=== PATIENT | male | born 1930 | race Caucasian/White ===

== ENCOUNTER 2016-04-12 18:53 | Inpatient (IN) | payer MEDICARE, MEDICAID ==
[~2016-04-12] VITALS: Ht 185.4 cm; Wt 69.9 kg
[~2016-04-12 18:53] MED LIST: ADVAIR 100/501 DISK INH; ADVAIR 500/501 DISK INH; ALBUTEROL2.5 MG/3 M INH; ATROVENT 0.03%30 ML NASAL; AUGMENTIN 500-11 TA1 PO; AUGMENTIN 875-11 TAB PO; B-12 DOTS500 MCG; BAYER CHEWABLE81 MG PO; BENEFIBER1 PKT PO; BETAPACE 120 M120 MG PO; BETAPACE 80 MG80 MG PO; CLEOCIN HCL300 MG PO; COLACE100 MG PO; DOK250 MG PO; DULCOLAX10 MG/SUPP RC; FLAGYL500 MG PO; FLUTICASONE PRO16 GM NS; FUROSEMIDE20 MG PO; GENTAK5 ML; HYDROCODONE-APA1 TAB PO; IPRAT-ALBUT 0.5-3 ML UPD; K-TAB10 MEQ PO; LASIX20 MG PO; LEVAQUIN 5500 MG/100 PO; LEVAQUIN500 MG PO; LEVAQUIN750 MG PO; LEVSIN/ANASP0.125 MG PO; LINZESS145 MCG PO; LISINOPRIL10 MG PO; MEDROL DOSE PACK4 MG PO; MIRALAX17 GM PO; MUCINEX1200 MG/BO; NIFEREX-150 CAP1 CA3 PO; NORCO 10/325 TA1 TA1 OR; NORCO 10/325 TA1 TA1 PO; NORVASC2.5 MG PO; NYSTATIN ORAL SU5 ML PO; PERFOROMIS20 MCG/21 INH; PLAVIX75 MG PO; PREDNISONE10 MG PO; PREDNISONE20 MG PO; PRINIVIL20 MG PO; PROTONIX40 MG PO; PULMICORT0.5 MG/21 INH; SINGULAIR10 MG PO; SPIRIVA18 MCG INH; STERAPRED 5MG 125 MG PO; TESSALON PERLE100 MG PO; TOPROL XL50 MG PO; XOPENEX 0.0.63 MG/3 UPD; ZOCOR40 MG PO
[2016-04-12 19:51] LABS: BASOPHILS 0.3 % (0.0-2.0); EOSINOPHILS 1.1 % (0-7); HEMATOCRIT 32.3 % (42.0-54.0); HEMOGLOBIN 9.9 g/dL (13.5-17.5); LYMPHOCYTES 13.6 % (15-50); MCH 24.3 pg (26.0-34.0); MCHC 30.7 g/dL (31.0-37.0); MCV 79.2 fL (80.0-100.0); MEAN PLATELET VOLUME 10.8 fL (7.4-10.4); MONOCYTES 5.2 % (2-11); NEUTROPHILS 79.8 % (40-80); PLATELET COUNT 187 10x3/uL (130-400); RBC 4.08 10x6/uL (4.20-6.10); RDW 19.2 % (11.5-14.5); WBC 3.7 10x3/uL (4.8-10.8)
[2016-04-12 20:08] LABS: ALBUMIN 2.7 g/dL (3.4-5.0); ANION GAP 17.4 mmol/L (8-16); BILIRUBIN - TOTAL 0.47 mg/dL (0.2-1.3); CALCIUM 8.3 mg/dL (8.5-10.1); CARBON DIOXIDE 23.7 mmol/L (21.0-32.0); CREATININE - SERUM 1.2 mg/dL (0.6-1.3); POTASSIUM - SERUM 5.1 mmol/L (3.5-5.1); PROTEIN - SERUM 5.7 g/dL (6.4-8.2)
[2016-04-12 20:10] LABS: APPEARANCE CLEAR (CLEAR); BILIRUBIN NEGATIVE (NEGATIVE); COLOR YELLOW (YELLOW); GLUCOSE NEGATIVE (NEGATIVE); KETONE SMALL mg/dL (NEGATIVE); LEUKOCYTE ESTERASE NEGATIVE (NEGATIVE); NITRITE NEGATIVE (NEGATIVE); PROTEIN NEGATIVE (NEGATIVE); SPECIFIC GRAVITY 1.015 (1.005-1.020); UROBILINOGEN NORMAL (NORMAL)
[2016-04-13] VITALS (46 sets, daily range): BP systolic 76–113; BP diastolic 40–84; Ht 185.4 cm; Wt 69.9 kg
[2016-04-13] MEDS ORDERED: CLEOCIN HCL300 MG PO (03:03)
--- NOTE | 2016-04-13 05:14 | NUR ---
PT RESTING COMFORTABLY AT THIS TIME, NO NEEDS NOTED, WILL CON'T TO MONITOR
[2016-04-13 09:00] LABS: BASOPHILS 0.1 % (0.0-2.0); EOSINOPHILS 0.1 % (0-7); HEMATOCRIT 30.4 % (42.0-54.0); HEMOGLOBIN 9.4 g/dL (13.5-17.5); IMMATURE GRANULOCYTES 0.3 % (0-5); LYMPHOCYTES 8.5 % (15-50); MCH 24.4 pg (26.0-34.0); MCHC 30.9 g/dL (31.0-37.0); MEAN PLATELET VOLUME 8.9 fL (7.4-10.4); MONOCYTES 8.5 % (2-11); NEUTROPHILS 82.5 % (40-80); PLATELET COUNT 172 10x3/uL (130-400); RBC 3.85 10x6/uL (4.20-6.10); RDW 19.3 % (11.5-14.5)
[2016-04-13 09:08] LABS: ANION GAP 12.5 mmol/L (8-16); CALCIUM 8.3 mg/dL (8.5-10.1); CARBON DIOXIDE 25.7 mmol/L (21.0-32.0); CREATININE - SERUM 1.1 mg/dL (0.6-1.3)
[2016-04-13 09:15] LABS: POTASSIUM - SERUM 4.2 mmol/L (3.5-5.1)
--- NOTE | 2016-04-13 10:00 | NUR ---
DOPAMINE TITRATED OFF.
--- NOTE | 2016-04-13 10:17 | NUR ---
Is the patient Alert and Oriented? Yes 0 * How many steps to enter\exit or inside your home? RAMP 0 * PCP DR. LANDAVERDE 0 * Pharmacy [facility] 0 * Preadmission Environment Home with Family 0 * ADLs Independent 0 * Equipment Bedside Commode Cane Nebulizer Oxygen Rolling Walker Wheelchair 0 * Other Equipment PATIENT STATES HIS O2 CONCENTRATOR AND PORTABLE AND NEBULIZER IS PROVIDED BY [employer] 0 * List name and contact numbers for known caregivers / representatives who currently or will assist patient after discharge: GRANDDAUGHTER: DEJA TAMEZ [phone] 0 * Community resources currently utilized Home Health 0 * Please name any agencies selected above. PATIENT CURRENT WITH [employer] AND HE ALSO HAS [facility] CALLS 0 * Additional services required to return to the preadmission environment? No 0 * Can the patient safely return to the preadmission environment? Yes 0 * Has this patient been hospitalized within the prior 30 days at any hospital? Yes 0 PATIENT IS AWAKE AND ALERT. HE STATES HE IS INDEPENDENT AND HIS GRANDDAUGHTER, DEJA TAMEZ, LIVES WITH HIM AND ASSISTS HIM NEEDED. SHE OR HER BOYFRIEND WILL BE AVAILABLE TO DRIVE HIM HOME AT DISCHARGE. PATIENT'S PCP IS DR. LANDAVERDE. HE GETS HIS MEDS FROM [facility] AT [facility]. PATIENT IS CURRENT WITH [facility]. HE STATES HE ALSO HAS SERVICES FROM [facility] CALLS. PATIENT STATES HE HAS O2 CONCENTRATOR AND PORTABLE PROVIDED BY [employer]. HE HAS A WALKER, CANE, W/C, AND BSC. HE STATES HE DOES NOT USE ANY OF THE EQUIPMENT IT WAS HIS 'S IN THE PAST. PATIENT STATES HE HAS RAMPS TO ENTER HIS HOME. NO DISCHARGE NEEDS IDENTIFIED AT THIS TIME.
--- NOTE | 2016-04-13 10:55 | NUR ---
BP REMAINS ABOVE PARAMETERS FOR DOPAMINE DRIP.
--- NOTE | 2016-04-13 14:26 | NUR ---
R.T. AT BEDSIDE NO CURRENT NEEDS.
[2016-04-13 14:31] LABS: CKMB 0.3 U/L (0.0-3.6); CREATINE KINASE 30 UL (21-232)
[2016-04-13 14:37] LABS: TROPONIN-I < 0.017 ng/mL (0.000-0.060)
[2016-04-13 18:59] LABS: CKMB 0.3 U/L (0.0-3.6); CREATINE KINASE 32 UL (21-232)
[2016-04-13 19:00] LABS: TROPONIN-I < 0.017 ng/mL (0.000-0.060)
--- NOTE | 2016-04-13 19:30 | NUR ---
PT AOX4, DENIES PAIN AT THIS TIME. UNLABORED RESPIRATIONS, SPO2 97 ON 4L NC. LUNG SOUNDS DIMINISHED. PERIPHERAL PULSES PRESENT. BOWEL SOUNDS ACTIVE IN ALL QUADRANTS. PT REPOSITIONS SELF INDEPENDENTLY. DENIES NEEDS AT THIS TIME. CALL LIGHT AND BEDSIDE TABLE WITHIN PT REACH. CPOC.
--- NOTE | 2016-04-13 21:00 | NUR ---
NO VISITORS AT THIS TIME. PT RESTING QUIETLY. VSS.
--- NOTE | 2016-04-13 23:00 | NUR ---
FRESH WATER TO BEDSIDE. VSS, PT DENIES PAIN AT THIS TIME. REPOSITIONED FOR COMFORT. DENIES NEEDS. CALL LIGHT AND BEDSIDE TABLE WITHIN PT REACH. CPOC.
[2016-04-14] VITALS (15 sets, daily range): BP systolic 96–123; BP diastolic 57–80
[2016-04-14 02:34] LABS: CKMB 0.3 U/L (0.0-3.6); CREATINE KINASE 28 UL (21-232)
[2016-04-14 02:40] LABS: TROPONIN-I < 0.017 ng/mL (0.000-0.060)
--- NOTE | 2016-04-14 04:00 | NUR ---
LINEN CHANGE AND PARTIAL BATH. VSS, NO C/O PAIN AT THIS TIME. RESTING COMFORTABLY. CALL LIGHT AND BEDSIDE TABLE WITHIN PT REACH. CPOC.
[2016-04-14 05:59] LABS: BASOPHILS 0 % (0.0-2.0); EOSINOPHILS 0 % (0-7); HEMATOCRIT 30.6 % (42.0-54.0); HEMOGLOBIN 9.5 g/dL (13.5-17.5); IMMATURE GRANULOCYTES 0.3 % (0-5); LYMPHOCYTES 4.2 % (15-50); MCH 24.2 pg (26.0-34.0); MCV 78.1 fL (80.0-100.0); MEAN PLATELET VOLUME 10.4 fL (7.4-10.4); MONOCYTES 2.6 % (2-11); NEUTROPHILS 92.9 % (40-80); PLATELET COUNT 151 10x3/uL (130-400); RBC 3.92 10x6/uL (4.20-6.10); RDW 19.6 % (11.5-14.5); WBC 5.8 10x3/uL (4.8-10.8)
[2016-04-14 06:33] LABS: ALBUMIN 2.3 g/dL (3.4-5.0); ALKALINE PHOSPHATASE 55 U/L (46-116); AMYLASE - SERUM 11 U/L (25-115); CALC OSMOLALITY 271 mosm/kg (275-300); CALCIUM 8.4 mg/dL (8.5-10.1); CARBON DIOXIDE 24.8 mmol/L (21.0-32.0); CHLORIDE - SERUM 100 mmol/L (98-107); GLUCOSE 163 mg/dL (74-106); MAGNESIUM - SERUM 1.6 mg/dL (1.8-2.4); PHOSPHOROUS 2.9 mg/dL (2.5-4.9); POTASSIUM - SERUM 4.2 mmol/L (3.5-5.1); PRO BNP 5331 pg/mL (0-450); PROTEIN - SERUM 5.9 g/dL (6.4-8.2); SODIUM 133 mmol/L (136-145); THYROID STIMULATING HORMONE 2.11 uIU/mL (0.36-3.74); UREA NITROGEN 17 mg/dL (7-18); eGFR NON AFRICAN AMERICAN 76 mL/min (90-120)
[2016-04-14 06:35] LABS: ALT (SGPT) 20 U/L (10-68); LIPASE 42 U/L (73-393)
--- NOTE | 2016-04-14 07:40 | NUR ---
SITTING UP ON SIDE OF BED FOR BREAKFAST. REFUSES MILK STATING LACTOSE INTOLERANT.
--- NOTE | 2016-04-14 10:00 | NUR ---
WATCHING TV. NO NEEDS. C/L IN REACH.
--- NOTE | 2016-04-14 14:31 | NUR ---
REPORT CALLED TO RYAN BERGERON. WILL TRANSFER PT TO ROOM 2203.
--- NOTE | 2016-04-14 15:28 | NUR ---
GRANDDAUGHTER DEJA NOTIFIED OF TRANSFER ROOM NUMBER. PT TRANSFERED TO 2203 VIA WHEELCHAIR.
--- NOTE | 2016-04-14 15:40 | NUR ---
PATIENT TRANSFERRED TO ROOM AT THIS TIME FROM ICU. NO COMPLAINTS OR SIGNS OF DISTRESS. SL X 2 INTACT. SITTING UP IN BED WITH CALL LIGHT WITHIN REACH.
--- NOTE | 2016-04-14 18:00 | NUR ---
PATIENT SITTING UP ON THE SIDE OF BED AT THIS TIME EATING. NO COMPLAINTS. IV INTACT. CALL LIGHT WITHIN REACH.
[2016-04-15 04:00] VITALS: BP 122/73
[2016-04-15 05:52] LABS: BASOPHILS 0 % (0.0-2.0); EOSINOPHILS 0 % (0-7); HEMATOCRIT 29.1 % (42.0-54.0); HEMOGLOBIN 9.2 g/dL (13.5-17.5); IMMATURE GRANULOCYTES 0.1 % (0-5); LYMPHOCYTES 5.3 % (15-50); MCH 24.3 pg (26.0-34.0); MCHC 31.6 g/dL (31.0-37.0); MONOCYTES 3.6 % (2-11); RBC 3.78 10x6/uL (4.20-6.10); RDW 19.1 % (11.5-14.5)
[2016-04-15 05:53] LABS: PLATELET COUNT 218 10x3/uL (130-400); WBC 7.5 10x3/uL (4.8-10.8)
[2016-04-15 06:15] LABS: ANION GAP 12.7 mmol/L (8-16); CALCIUM 8.8 mg/dL (8.5-10.1); CARBON DIOXIDE 25.5 mmol/L (21.0-32.0); CREATININE - SERUM 1.2 mg/dL (0.6-1.3); POTASSIUM - SERUM 4.2 mmol/L (3.5-5.1)
--- NOTE | 2016-04-15 07:00 | NUR ---
REPORT RECIEVED ASSUMED CARE. PATIENT IN BED WITH IV INTACT. NO COMPLAINTS OR SIGNS OF DISTRESS. CALL LIGHT WITHIN REACH.
[2016-04-15 09:04] VITALS: BP 140/92
[2016-04-15 09:47] LABS: % SATURATION 11 % (15-55); IRON 31 ug/dl (35-150); TOTAL IRON BIND CAPACITY 268 ug/dl (260-445); UNSAT IRON BIND CAPACITY 237 ug/dl (150-375)
[2016-04-15 13:01] VITALS: BP 136/79
--- NOTE | 2016-04-15 15:54 | HP ---
PATIENT: RAVEN SNIDER MEDICAL RECORD: [id number] ACCOUNT: [id number] LOCATION:D.MS [id number] : 32 ADMISSION DATE: 04/12/16 HISTORY AND PHYSICAL EXAMINATION HISTORY OF PRESENT ILLNESS: This 85-year-old male presented to the Emergency Room upon day of admission with complaint of nausea, vomiting and not feeling well. The patient had a temperature of 102 degrees, received updraft treatments by EMS and nausea medication, was brought in for further evaluation. Workup was obtained. The patient was having chills and congestion, was found to be tachycardic, unlabored respirations, but tachypneic and was admitted to the hospital. The patient is presently in the ICU and was notified of the patient this morning. The patient is resting comfortably at the present time, but complains of abdominal pain and will have further workup from the ICU. PAST MEDICAL HISTORY: Significant for CVA, coronary artery disease, [place], peripheral vascular disease, pneumonia, COPD, and hypoxia. 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 MEDICATIONS: Include lisinopril. SOCIAL HISTORY: The patient does not smoke at the present time. No alcohol use. REVIEW OF SYSTEMS: As above. PHYSICAL EXAMINATION: VITAL SIGNS: As below. GENERAL: He is an ill-appearing, well-developed, well-nourished 85-year-old white male that is resting in ICU. HEENT: Pupils are equal, round, and reactive to light. Extraocular movements are intact. Oral cavity and oropharynx otherwise clear. NECK: No cervical or pharyngeal adenopathy. No nuchal rigidity. LUNGS: Coarse breath sounds heard in the bases. HEART: Tachycardic with a I/ systolic ejection murmur. ABDOMEN: Soft and nontender. Positive bowel sounds. No hepatosplenomegaly, no masses. EXTREMITIES: Missing fingers as described above. MEDICATIONS: The patient also is on Colace, sotalol, simvastatin, clindamycin, lisinopril, Lasix, and Singulair. ALLERGIES: HE IS ALLERGIC TO LIDOCAINE AND NOVOCAIN. ASSESSMENT: 1. Sepsis. 2. Pneumonia. 3. Fever. 4. Tachycardia. 5. Arrhythmia. 6. Abdominal pain. PLAN: The patient will be admitted to the ICU. Pulmonary consultation with HISTORY AND PHYSICAL [id number] RAVEN SNIDER. Check laboratory appropriately. Antibiotics and updraft treatments and IV fluids. TRANSINT:[id number] Voice Confirmation ID: [id number] DOCUMENT ID: [id number] LAQUITA PEREZ MD at 1554 CC: [id number] DICTATION DATE: 04/13/16 1224 UPHOLSTERY MECHANIC: 04/13/16 1246 ADM IN [place] [id number] [place] [id number]
--- NOTE | 2016-04-15 18:02 | NUR ---
PATIENT IN BED WITH IV INTACT. SITTING UP WITH NO COMPLAINTS. IV INTACT. CALL LIGHT WITHIN REACH. REFUSES BSCDS.
[2016-04-15 18:10] VITALS: BP 115/70
--- NOTE | 2016-04-15 20:02 | NUR ---
PATIENT RESTING IN BED IN HIGH FOWLERS POSITION. NO SIGNS OF DISTRESS NOTED AT THIS TIME. RESPIRATIONS EVEN AND UNLABORED. DENIES ANY NEEDS AT THIS TIME. BED LOW. CALL LIGHT IN REACH.
[2016-04-15 21:00] VITALS: BP 131/84
[2016-04-16 02:00] VITALS: BP 122/87
--- NOTE | 2016-04-16 02:30 | NUR ---
PT IN BED WITH NO NEEDS. LEFT WRIST PATENT AND SALINE LOC. PT REFUSING SCD'S. SIDE RAILS ARE UP X 2. BED IS LOW. CALL LIGHT IS IN REACH.
[2016-04-16 05:02] LABS: BASOPHILS 0 % (0.0-2.0); EOSINOPHILS 0 % (0-7); HEMATOCRIT 29.9 % (42.0-54.0); HEMOGLOBIN 9.8 g/dL (13.5-17.5); IMMATURE GRANULOCYTES 0.4 % (0-5); LYMPHOCYTES 5.3 % (15-50); MCH 25.2 pg (26.0-34.0); MCHC 32.8 g/dL (31.0-37.0); MCV 76.9 fL (80.0-100.0); MEAN PLATELET VOLUME 10.4 fL (7.4-10.4); MONOCYTES 3.1 % (2-11); NEUTROPHILS 91.2 % (40-80); PLATELET COUNT 186 10x3/uL (130-400); RBC 3.89 10x6/uL (4.20-6.10); RDW 19.5 % (11.5-14.5); WBC 7.2 10x3/uL (4.8-10.8)
[2016-04-16 05:24] LABS: ANION GAP 13.2 mmol/L (8-16); CALCIUM 8.8 mg/dL (8.5-10.1); CARBON DIOXIDE 25.1 mmol/L (21.0-32.0); CREATININE - SERUM 1.1 mg/dL (0.6-1.3); POTASSIUM - SERUM 4.3 mmol/L (3.5-5.1)
[2016-04-16 06:00] VITALS: BP 137/79
[2016-04-16 08:30] VITALS: BP 138/86
--- NOTE | 2016-04-16 12:01 | NUR ---
NUTRITION MONITORING & EVAL CHART REVIEWED. PT TOLERATING REG DIET. 100% INTAKE RECENT MEALS. ENSURE WITH MEALS. RD FOLLOWING
[2016-04-16 12:14] VITALS: BP 116/78
[2016-04-16 16:54] VITALS: BP 140/90
[2016-04-16 21:00] VITALS: BP 140/79
[2016-04-17 00:21] VITALS: BP 142/88
--- NOTE | 2016-04-17 02:09 | NUR ---
RESTING WITH EYES CLOSED, RESP WITH EASE, NO ACUTE DISTRESS NOTED, CL IN REACH
[2016-04-17 05:00] VITALS: BP 132/82
[2016-04-17 05:26] LABS: BASOPHILS 0.1 % (0.0-2.0); EOSINOPHILS 0 % (0-7); HEMATOCRIT 32.4 % (42.0-54.0); HEMOGLOBIN 10.1 g/dL (13.5-17.5); IMMATURE GRANULOCYTES 1.7 % (0-5); LYMPHOCYTES 6.8 % (15-50); MCH 24.2 pg (26.0-34.0); MCHC 31.2 g/dL (31.0-37.0); MCV 77.7 fL (80.0-100.0); MEAN PLATELET VOLUME 9.8 fL (7.4-10.4); MONOCYTES 6.2 % (2-11); NEUTROPHILS 85.2 % (40-80); RBC 4.17 10x6/uL (4.20-6.10); RDW 19.5 % (11.5-14.5); WBC 7.2 10x3/uL (4.8-10.8)
[2016-04-17 05:35] LABS: PLATELET COUNT 279 10x3/uL (130-400)
[2016-04-17 05:53] LABS: ANION GAP 12.7 mmol/L (8-16); CALCIUM 8.9 mg/dL (8.5-10.1); CARBON DIOXIDE 28.1 mmol/L (21.0-32.0); CREATININE - SERUM 1.3 mg/dL (0.6-1.3); POTASSIUM - SERUM 4.8 mmol/L (3.5-5.1)
--- NOTE | 2016-04-17 07:10 | NUR ---
PATIENT RECEIVED ALERT IN HIGH BRISCOE POSITION WATCHING TV. NO SIGNS OF DISTRESS NOTED. DENIES NEEDS. SIDE RAILS UP X2. BED IN LOW POSITION. CALL LIGHT IN REACH.
[2016-04-17 07:53] VITALS: BP 164/106
[2016-04-17 09:12] LABS: TRANSFERRIN 211 mg/dL (200-370)
[2016-04-17] MEDS ORDERED: PULMICORT0.5 MG/21 UPD (10:04)
[2016-04-17] MEDS ORDERED: TESSALON PERLE100 MG PO (10:04)
[2016-04-17] MEDS ORDERED: MUCINEX DM ER1 EAC1 PO (10:05)
[2016-04-17] MEDS ORDERED: LEVAQUIN750 MG PO (10:06)
[2016-04-17] MEDS ORDERED: PREDNISONE10 MG PO (10:07)
[2016-04-17] MEDS ORDERED: ZITHROMAX250 MG PO (10:09)
--- NOTE | 2016-04-17 12:11 | NUR ---
WOUND CARE CONSULT: NOTED OLD BRUISES ON BILATERAL ARMS. 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 NO CHRONIC WOUNDS.
[2016-04-17 12:18] VITALS: BP 153/97
--- NOTE | 2016-04-17 12:32 | NUR ---
IV D/C WITH CATH TIP INTACT. SITE COVERED WITH GAUZE AND BANDAID.
--- NOTE | 2016-04-17 12:52 | NUR ---
CM REASSESSMENT NOTE: PATIENT IS DISCHARGING HOME TODAY WITH FAMILY. PATIENT IS CURRENT WITH [facility] (NOTIFIED) AND HOUSE CALLS. PATIENT HAS ALL EQUIPMENT NEEDED AT HOME. FAMILY BRINGING PORTABLE O2 TO GO HOME.
--- NOTE | 2016-04-17 12:55 | NUR ---
D/C TEACHING PROVIDED TO PATIENT AND FAMILY MEMBER. STATES UNDERSTANDING.
--- NOTE | 2016-04-17 13:00 | NUR ---
PATIENT D/C HOME WITH FAMILY VIA WHEELCHAIR.
[2016-04-18 20:08] LABS: SPE - A/G RATIO 0.9 (0.7-1.7); SPE - ALBUMIN 2.7 g/dL (2.9-4.4); SPE - ALPHA-1 GLOBULIN 0.5 g/dL (0.0-0.4); SPE - ALPHA-2 GLOBULIN 1.1 g/dL (0.4-1.0); SPE - BETA GLOBULIN 0.9 g/dL (0.7-1.3); SPE - GAMMA GLOBULIN 0.6 g/dL (0.4-1.8); SPE - M-SPIKE Not Observed g/dL (Not Observed); SPE - TOTAL PROTEIN 5.8 g/dL (6.0-8.5)
--- NOTE | 2016-04-25 09:13 | CN ---
PATIENT NAME:RAVEN QUIGLEY MEDICAL RECORD: [id number] : 32 LOCATION:D.MS [facility] ADMIT DATE: 04/12/16 ACCOUNT: [id number] CONSULTING PHYSICIAN: SMILEY CASTELLANO MD REFERRING PHYSICIAN: EMMANUELLE RAINES DO DATE OF CONSULTATION: 04/13/2016 CONSULT REQUESTING PHYSICIAN: Mariano Lilly MD REASON FOR CONSULTATION: Pneumonia and shortness of breath. HISTORY OF PRESENT ILLNESS: Mr. Quigley is an 85-year-old gentleman, very well known to me. According to the patient, he is doing fairly. He has some nausea, was seen at Dr. Landaverde's office yesterday. Then, last night he has a fever and chill and the patient came into the ER and on evaluation, he was found to have pneumonia on the right side. He has also vomited this morning. There is no associated diarrhea. He is coughing with white yellow colored sputum production. He also has fever and chill. He has a temperature of 102. REVIEW OF SYSTEMS: CONSTITUTIONAL: He has a fever and chill. HEENT: Sinus congestion. RESPIRATORY: As in history of present illness. CARDIOVASCULAR: Negative. GASTROINTESTINAL: Nausea and vomiting. GENITOURINARY: Negative. Other review of the systems are negative. PAST MEDICAL HISTORY: 1. COPD of severe degree, home oxygen dependent. 2. Chronic respiratory failure. 3. Severe gastroesophageal reflux disease. 4. Severe pulmonary hypertension. 5. Recurrent pneumonia. 6. Coronary artery disease. 7. Peripheral vascular disease. 8. History of thrombocytosis. 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 10. History of pancreatitis. PAST SURGICAL HISTORY: 1. Cholecystectomy. 2. He has amputation with third, fourth and fifth finger. 3. Bilateral carotid endarterectomy. ALLERGIES: HE IS ALLERGIC TO LIDOCAINE, PROCAINE AND NARCAN. PRESENT MEDICATIONS: On Orthogem was reviewed. PERSONAL AND SOCIAL HISTORY: The patient is an ex-smoker. He is a nondrinker. He lives alone. FAMILY HISTORY: Noncontributory. PHYSICAL EXAMINATION: CONSULT REPORT [id number] RAVEN QUIGLEY GENERAL: Now, the patient is lying comfortably in bed. He is not in acute distress. VITAL SIGNS: The blood pressure is 82-94/50, pulse is 94, respirations 16, temperature 99.3 and SPO2 is 97% on 4 liters nasal cannula. HEENT: Conjunctivae are pink. Sclerae nonicteric. NECK: Supple, no JVD. CHEST: There is prolonged expiration with wheezing, there are crackles on the right side. HEART: Rate and rhythm regular, normal sound, no murmur. ABDOMEN: Soft, bowel sounds present. No hepatosplenomegaly. RECTAL: Deferred. EXTREMITIES: No cyanosis, no clubbing, no pedal edema. SKIN: Warm, normal turgor. CENTRAL NERVOUS SYSTEM: The patient is awake and alert. There are no obvious cranial nerve abnormality. The gait was not tested. LABORATORY DATA: CBC: WBC is 7, hemoglobin 9.4, hematocrit 30.4 and the platelet count is 172. Chemistry: Sodium 137, potassium is 4.2, BUN is 17, creatinine 1.1 and bicarbonate is 25.7. Lactic acid level is 1.7 and magnesium 1.4. IMPRESSION: 1. Acute exacerbation of chronic obstructive pulmonary disease. 2. Pneumonia, right lower lobe consistent with community-acquired, possible aspiration with the patient's severe gastroesophageal reflux disease and recent nausea and vomiting. 3. Chronic hypoxic respiratory failure. 4. Severe gastroesophageal reflux disease. 5. 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 6. Severe pulmonary hypertension at 73 mmHg. RECOMMENDATION: Continue Zosyn. I will add Levaquin. Start methylprednisolone IV. Continue albuterol/ipratropium nebulizer. Start on Brovana and budesonide nebulizer. Continue Singulair. Follow up labs and chest radiograph in the morning. We will recommend GI consult, Dr. Lilly, once again thanks for involving me in the care of Mr. Quigley. TRANSINT:[id number] Voice Confirmation ID: [id number] DOCUMENT ID: [id number] SMILEY CASTELLANO MD at 0913 CC: TIMOTEO LANDAVERDE MD [id number] DICTATION DATE: 04/13/16 1435 MUSCULOSKELETAL PHYSICIAN: 04/13/16 1810 DIS IN 04/17/16 [facility] [address] [place] [address]
== END 2016-04-17 13:04 | disposition home health service (06) | DRG 871 ==
LOC: D.ER 18:53 → D.MS 21:48 → D.ER 21:48 → D.ICU 21:48 → D.MS 04-14 15:33
PROVIDERS: Emergency Medicine; Family Medicine; Legal Medicine; ADMIT Family Medicine
DX: A41.9 Sepsis, unspecified organism (principal); J15.6 Pneumonia due to other Gram-negative bacteria; J69.0 Pneumonitis due to inhalation of food and vomit; J44.1 Chronic obstructive pulmonary disease with (acute) exacerbation; J44.0 Chronic obstructive pulmonary disease with (acute) lower respiratory infection; J96.11 Chronic respiratory failure with hypoxia; I50.32 Chronic diastolic (congestive) heart failure; D80.1 Nonfamilial hypogammaglobulinemia; I25.10 Atherosclerotic heart disease of native coronary artery without angina pectoris; I11.0 Hypertensive heart disease with heart failure; I27.2 Other secondary pulmonary hypertension; I73.9 Peripheral vascular disease, unspecified; K21.9 Gastro-esophageal reflux disease without esophagitis; Z86.73 Personal history of transient ischemic attack (TIA), and cerebral infarction without residual deficits; I25.2 Old myocardial infarction; Z99.81 Dependence on supplemental oxygen; Z87.891 Personal history of nicotine dependence

== ENCOUNTER → 2016-05-02 11:42 | Outpatient (CLI) | payer MEDICARE, MEDICAID ==
[2016-04-13 10:00] VITALS: BMI 20.3
[~2016-05-02 11:42] MED LIST changes: +CARAFATE1 G/10 ML PO; +GAS-X125 M1 PO; +MUCINEX DM ER1 EAC1 PO; +PULMICORT0.5 MG/21 UPD; +ZITHROMAX250 MG PO; +[UNRECOGNIZED DRUG - OTHER] PO
== END | disposition home or self-care (01) ==
LOC: D.RAD 04-30 11:15
DX: J18.9 Pneumonia, unspecified organism (principal)

== ENCOUNTER 2016-05-18 12:21 | Emergency (ER) | payer MEDICARE, MEDICAID ==
[2016-04-13 10:00] VITALS: BMI 20.3
[~2016-05-18 12:21] MED LIST changes: -CARAFATE1 G/10 ML PO; -GAS-X125 M1 PO; -[UNRECOGNIZED DRUG - OTHER] PO
[2016-05-18 14:43] LABS: ALBUMIN 2.9 g/dL (3.4-5.0); ALKALINE PHOSPHATASE 51 U/L (46-116); ALT (SGPT) 14 U/L (10-68); CALC OSMOLALITY 269 mosm/kg (275-300); CARBON DIOXIDE 29.8 mmol/L (21.0-32.0); CHLORIDE - SERUM 99 mmol/L (98-107); CREATININE - SERUM 0.9 mg/dL (0.6-1.3); GLUCOSE 108 mg/dL (74-106); POTASSIUM - SERUM 4.1 mmol/L (3.5-5.1); PROTEIN - SERUM 6.5 g/dL (6.4-8.2); SODIUM 134 mmol/L (136-145); UREA NITROGEN 15 mg/dL (7-18); eGFR NON AFRICAN AMERICAN 85 mL/min (90-120)
[2016-05-18 15:55] LABS: BASOPHILS 0.1 % (0.0-2.0); EOSINOPHILS 0.1 % (0-7); HEMATOCRIT 32.2 % (42.0-54.0); IMMATURE GRANULOCYTES 0.3 % (0-5); LYMPHOCYTES 12.5 % (15-50); MCH 25.8 pg (26.0-34.0); MCHC 31.1 g/dL (31.0-37.0); MEAN PLATELET VOLUME 10.1 fL (7.4-10.4); MONOCYTES 10.3 % (2-11); NEUTROPHILS 76.7 % (40-80); RBC 3.88 10x6/uL (4.20-6.10); WBC 9.2 10x3/uL (4.8-10.8)
[2016-05-18 16:05] LABS: PLATELET COUNT 136 10x3/uL (130-400)
== END 2016-05-18 17:58 | disposition home or self-care (01) ==
LOC: D.ER 12:21
PROVIDERS: Emergency Medicine
DX: E86.0 Dehydration (principal)

== ENCOUNTER 2016-06-25 13:25 | Inpatient (IN) | payer MEDICARE, MEDICAID ==
[~2016-06-25] VITALS: Ht 185.4 cm; Wt 69.4 kg
--- NOTE | 2016-06-25 13:40 | NUR ---
PATIENT RECEIVED TO FLOOR FROM ADMISSIONS VIA WHEELCHAIR. PATIENT A/O X4. UP AMBULATING IN ROOM WITHOUT ASSIST. NO SIGNS OF DISTRESS NOTED. ORIENTED TO ROOM. WILL CONTINUE TO MONITOR.
[2016-06-25 13:48] VITALS: BP 109/60
[2016-06-25] MEDS ORDERED: LISINOPRIL10 MG PO (13:53)
[2016-06-25] MEDS ORDERED: CARAFATE1 G/10 ML PO (13:54)
[2016-06-25] MEDS ORDERED: [UNRECOGNIZED DRUG - OTHER] PO (13:55)
[2016-06-25] MEDS ORDERED: ADVAIR 500/501 DISK INH (13:55)
[2016-06-25] MEDS ORDERED: GAS-X125 M1 PO (14:03)
[2016-06-25] MEDS ORDERED: NORVASC2.5 MG PO (14:03)
[2016-06-25 14:20] LABS: BASOPHILS 0.3 % (0.0-2.0); EOSINOPHILS 0.2 % (0-7); HEMATOCRIT 30.7 % (42.0-54.0); HEMOGLOBIN 9.9 g/dL (13.5-17.5); IMMATURE GRANULOCYTES 0.3 % (0-5); LYMPHOCYTES 7.3 % (15-50); MCH 27.2 pg (26.0-34.0); MCHC 32.2 g/dL (31.0-37.0); MCV 84.3 fL (80.0-100.0); MEAN PLATELET VOLUME 9.9 fL (7.4-10.4); NEUTROPHILS 83.9 % (40-80); RBC 3.64 10x6/uL (4.20-6.10); RDW 16.6 % (11.5-14.5); WBC 17.3 10x3/uL (4.8-10.8)
--- NOTE | 2016-06-25 14:30 | NUR ---
22 GAUGE IV SITED TO RIGHT FOREARM X2 ATTEMPT. FLUSHES EASY WITH BRISK BLOOD RETURN PRESENT. SECURED WITH TAPE AND TEGADERM. WELL TOLERATED.
[2016-06-25 14:34] LABS: PLATELET COUNT 224 10x3/uL (130-400)
[2016-06-25 15:21] LABS: ALBUMIN 3.5 g/dL (3.4-5.0); ALKALINE PHOSPHATASE 64 U/L (46-116); ALT (SGPT) 14 U/L (10-68); BILIRUBIN - TOTAL 0.93 mg/dL (0.2-1.3); CALC OSMOLALITY 267 mosm/kg (275-300); CALCIUM 9.1 mg/dL (8.5-10.1); CARBON DIOXIDE 25.1 mmol/L (21.0-32.0); CHLORIDE - SERUM 97 mmol/L (98-107); GLUCOSE 106 mg/dL (74-106); POTASSIUM - SERUM 4.3 mmol/L (3.5-5.1); PROTEIN - SERUM 6.7 g/dL (6.4-8.2); SODIUM 134 mmol/L (136-145); UREA NITROGEN 12 mg/dL (7-18); eGFR NON AFRICAN AMERICAN 76 mL/min (90-120)
[2016-06-25 15:49] VITALS: BP 109/60; BMI 20.2
[2016-06-25 16:09] VITALS: BP 116/63
--- NOTE | 2016-06-25 16:23 | NUR ---
ALERT IN BED. NO DISTRESS NOTED. SCHEDULED MEDICATION ADMINISTERED. SIDE RAILS UP X2. BED IN LOW POSITION. CALL LIGHT IN REACH.
--- NOTE | 2016-06-25 18:30 | NUR ---
PATIENT C/O NAUSEA. ZOFRAN ADMINSITERED PER PRN ORDER. DENIES FURTHER NEEDS. SIDE RAILS UP X2. BED IN LOW POSITION. CALL LIGHT IN REACH.
--- NOTE | 2016-06-25 19:40 | NUR ---
RECIEVED SHIFT REPORT. PT IS LYING IN BED. ALERT AND ORIENTED AND ABLE TO VERBALIZE NEEDS. IV IS PATENT AND SALINE LOC AT THIS TIME. PT IS AMBULATORY BUT WAS INSTRUCTED TO CALL FOR ANY ASSISTANCE NEEDED. O2 @ 3 PER NASAL CANNULA. PT DENIES ANY PAIN AT THIS TIME. NO NEEDS ARE VERBALIZED AT THIS TIME. WILL CONTINUE TO MONITOR. SIDE RAILS ARE UP X 2. BED IS IN LOWEST POSITION. CALL LIGHT IS WITHIN REACH.
[2016-06-25 20:00] VITALS: BP 89/47
--- NOTE | 2016-06-25 20:12 | NUR ---
SHIFT ASSESSMENT COMPLETED. NIGHT MEDS GIVEN WITH NO PROBLEMS. NO NEEDS ARE VOICED. WILL MONITOR. SIDE RAILS X 2. BED LOW. CALL LIGHT IN REACH.
[2016-06-26 04:00] VITALS: BP 108/55
[2016-06-26 05:26] LABS: CALC OSMOLALITY 268 mosm/kg (275-300); CALCIUM 8.6 mg/dL (8.5-10.1); CARBON DIOXIDE 25.4 mmol/L (21.0-32.0); CHLORIDE - SERUM 99 mmol/L (98-107); CREATININE - SERUM 0.9 mg/dL (0.6-1.3); GLUCOSE 148 mg/dL (74-106); POTASSIUM - SERUM 4.6 mmol/L (3.5-5.1); SODIUM 133 mmol/L (136-145); UREA NITROGEN 12 mg/dL (7-18); eGFR NON AFRICAN AMERICAN 85 mL/min (90-120)
[2016-06-26 05:43] LABS: BASOPHILS 0.2 % (0.0-2.0); EOSINOPHILS 0 % (0-7); HEMATOCRIT 25.8 % (42.0-54.0); HEMOGLOBIN 8.2 g/dL (13.5-17.5); IMMATURE GRANULOCYTES 0.2 % (0-5); LYMPHOCYTES 5.2 % (15-50); MCH 26.5 pg (26.0-34.0); MCHC 31.8 g/dL (31.0-37.0); MCV 83.2 fL (80.0-100.0); MEAN PLATELET VOLUME 10.1 fL (7.4-10.4); MONOCYTES 1.6 % (2-11); NEUTROPHILS 92.8 % (40-80); RDW 16.5 % (11.5-14.5)
[2016-06-26 05:49] LABS: PLATELET COUNT 164 10x3/uL (130-400); WBC 5.6 10x3/uL (4.8-10.8)
--- NOTE | 2016-06-26 07:15 | NUR ---
WALKING ROUNDS,WITHOUT DISTRESS.ASSESSMENT PER FLOW SHEET.FALL PREVENTION INITIATED. PLAN OF CARE REVIEWED.CALL LIGHT IN REACH.BED ALARM ON AND FUNCTIONING
[2016-06-26 08:12] VITALS: BP 113/65
--- NOTE | 2016-06-26 09:15 | NUR ---
SWALLOW STUDY COMPLETE.MEDS ORDERED.MONITOR
--- NOTE | 2016-06-26 11:24 | NUR ---
SCD'S ORDERED.IS ORDERED.PT STATES UNDERSTANDING.FALL PREVENTION IN PROGRESS
[2016-06-26 11:50] VITALS: BP 105/53
--- NOTE | 2016-06-26 12:45 | NUR ---
IV TENDER.PT EATING LUNCH.IV RESITE AFTER LUNCH
--- NOTE | 2016-06-26 13:26 | NUR ---
IV DC CATH INTACT.IV RESITED TO RIGHT WRIST X2 STICKS USING ASEPTIC TECH 22G.
[2016-06-26 15:38] VITALS: BP 117/62
--- NOTE | 2016-06-26 17:45 | NUR ---
REMAINS WITHOUT DISTRESS.REMAINS WITHOUT CHANGE.CONT PLAN OF CARE
[2016-06-26 20:00] VITALS: BP 120/55
--- NOTE | 2016-06-26 20:00 | NUR ---
ASSESSMENT PER FLOWSHEET. IV PATENT RT ARM SALINE LOCKED. SITE CLEAR O2 ON 3L/M PER NC. SR UP X2 CALL LIGHT WITHIN REACH.
--- NOTE | 2016-06-26 22:00 | NUR ---
MEDS PER MAR.
[2016-06-27] VITALS: BP 118/58
--- NOTE | 2016-06-27 | NUR ---
RESTING QUIETLY RESPIRATIONS WITH EASE AND UNLABORED.
--- NOTE | 2016-06-27 03:04 | NUR ---
IV ANTIBIOTICES COMPLETED IV CHANGED TO SALINE LOCK.
[2016-06-27 04:00] VITALS: BP 122/56
[2016-06-27 05:48] LABS: BASOPHILS 0 % (0.0-2.0); EOSINOPHILS 0 % (0-7); HEMATOCRIT 25.5 % (42.0-54.0); HEMOGLOBIN 8.1 g/dL (13.5-17.5); IMMATURE GRANULOCYTES 0.1 % (0-5); LYMPHOCYTES 5.8 % (15-50); MCH 26.3 pg (26.0-34.0); MCHC 31.8 g/dL (31.0-37.0); MCV 82.8 fL (80.0-100.0); MEAN PLATELET VOLUME 10.9 fL (7.4-10.4); MONOCYTES 2.8 % (2-11); NEUTROPHILS 91.3 % (40-80); RBC 3.08 10x6/uL (4.20-6.10); RDW 16.5 % (11.5-14.5)
[2016-06-27 06:23] LABS: PLATELET COUNT 105 10x3/uL (130-400); WBC 7.4 10x3/uL (4.8-10.8)
[2016-06-27 06:24] LABS: ALKALINE PHOSPHATASE 49 U/L (46-116); ALT (SGPT) 13 U/L (10-68); CALCIUM 8.2 mg/dL (8.5-10.1); CARBON DIOXIDE 23.8 mmol/L (21.0-32.0); CHLORIDE - SERUM 99 mmol/L (98-107); CREATININE - SERUM 0.9 mg/dL (0.6-1.3); GLUCOSE 159 mg/dL (74-106); MAGNESIUM - SERUM 1.8 mg/dL (1.8-2.4); PHOSPHOROUS 3.1 mg/dL (2.5-4.9); POTASSIUM - SERUM 4.7 mmol/L (3.5-5.1); PROTEIN - SERUM 5.4 g/dL (6.4-8.2); SODIUM 132 mmol/L (136-145); eGFR NON AFRICAN AMERICAN 85 mL/min (90-120)
[2016-06-27 06:25] LABS: ALBUMIN 2.6 g/dL (3.4-5.0); CALC OSMOLALITY 269 mosm/kg (275-300); UREA NITROGEN 18 mg/dL (7-18)
--- NOTE | 2016-06-27 07:15 | NUR ---
REPORT RECEIVED FROM SEARCH LEAD NURSE. CALL LIGHT IN REACH.
--- NOTE | 2016-06-27 07:40 | NUR ---
PATIENT ALERT IN HIGH BRISCOE POSITION WATCHING TV. RESPIRATIONS EVEN AND UNLABORED. SIDE RAILS UP X2. BED IN LOW POSITION. CALL LIGHT IN REACH.
[2016-06-27 08:05] VITALS: BP 128/81
--- NOTE | 2016-06-27 08:23 | NUR ---
ASSESSMENT COMPLETED. REFUSES SCDs. CALL LIGHT IN REACH. WILL CONTINUE WITH PLAN OF CARE.
--- NOTE | 2016-06-27 09:10 | NUR ---
AMBULATED 250 FEET IN HALLWAY WITH PHYSICAL THERAPY. TOLERATED WELL.
--- NOTE | 2016-06-27 09:43 | NUR ---
AM MEDS ADMINISTERED. REFUSES LOVENOX BECAUSE HE STATES THAT DR. PERERA DOES NOT WANT HIM TAKING ANY BLOOD THINNERS. CALL LIGHT IN REACH.
--- NOTE | 2016-06-27 09:51 | NUR ---
BHARATHI HAT PLACED IN BATHROOM FOR STOOL SPECIMEN. ALSO EXPLAINED TO PATIENT WHAT IT IS NEEDED FOR. VERBALIZED UNDERSTANDING.
--- NOTE | 2016-06-27 09:58 | NUR ---
PASSWORD OBTAINED AND PLACED IN COMPUTER.
--- NOTE | 2016-06-27 10:06 | NUR ---
Patient Name: RAVEN SINDER Admission Status: Urgent Accout number: [id number] Admission Date: 06-25-2016 : 1932 Admission Diagnosis:ACUTE AND CHRONIC RESPIRATORY FAILURE WITH HYPOXIA Attending: ALFONSO Current LOS: 2 Anticipated DC Date: 07-02-2016 Planned Disposition: Home with Home Health Primary Insurance: [employer] CHOICE PPO [facility] Discharge Planning Comments: CM MET WITH PATIENT REGARDING D/C NEEDS AND PLANS. PATIENT STATED HE LIVES WITH HIS GRANDDAUGHTER (MOHAMUD TAMEZ) AND SHE WILL DRIVE HIM HOME WHEN DISCHARGED. PATIENT STATED HE HAS RAMPS AT THE HOME. PATIENT STATED HE IS INDEPENDENT WITH HIS CARE THAT HIS GRANDDAUGHTER CLEANS, COOKS, AND HELPS HIM IF NEEDED. PATIENT HAS A WALKER, WHEELCHAIR, CANE, SHOWER CHAIR, BS COMMODE, NEBULIZER, OXYGEN, AND PORTABLE O2 AT HOME. PATIENTS OXYGEN IS SUPPLIED BY [facility]. PATIENTS PCP IS DR. LANDAVERDE AND USES [facility] AT THE [facility]. PATIENT IS CURRENT WITH [employer]. [facility] [id number] MOHAMUD TAMEZ (GRANDDAUGHTER) [phone] HOUSE CALLS Process Improvement Specialist: Shavon Miller Is the patient Alert and Oriented? Yes 0 * How many steps to enter\exit or inside your home? RAMP 0 * PCP DR. LNADAVERDE 0 * Pharmacy [facility] AT [facility] 0 * Preadmission Environment Home with Family 0 * ADLs Independent 0 * Equipment Bedside Commode Cane Nebulizer Oxygen Shower Chair Walker Wheelchair 0 * List name and contact numbers for known caregivers / representatives who currently or will assist patient after discharge: MOHAMUD TAMEZ [phone] * Community resources currently utilized Home Health Other 0 * Please name any agencies selected above. [facility] CALLS 0 * Additional services required to return to the preadmission environment? Yes 0 * Can the patient safely return to the preadmission environment? Yes 0 * Has this patient been hospitalized within the prior 30 days at any hospital? No 0 Grand Total: 0
--- NOTE | 2016-06-27 11:56 | NUR ---
CARAFATE PO PER ORDER. CALL LIGHT IN REACH. ANITA VASQUEZ.
[2016-06-27 12:28] VITALS: BP 121/72
--- NOTE | 2016-06-27 13:26 | NUR ---
STOOL SAMPLE COLLECTED AND SENT TO LAB.
--- NOTE | 2016-06-27 13:39 | NUR ---
RIGHT WRIST IV FLUSHED WITH 10 CC OF NS. CEFEPIME IVPB INFUSING PER MD ORDER. CALL LIGHT IN REACH. DENIES OTHER NEEDS.
--- NOTE | 2016-06-27 15:38 | NUR ---
AFTERNOON MEDS ADMINISTERED PER ORDER. CALL LIGHT IN REACH.
[2016-06-27 15:46] VITALS: BP 115/78
--- NOTE | 2016-06-27 16:54 | NUR ---
DENIES NEEDS AT THIS TIME. CALL LIGHT IN REACH.
--- NOTE | 2016-06-27 18:37 | NUR ---
NO CHANGES IN INITIAL ASSESSMENT. STILL REFUSES SCDs. CALL LIGHT IN REACH. WILL CONTINUE WITH PLAN OF CARE.
[2016-06-27 20:00] VITALS: BP 125/79
--- NOTE | 2016-06-27 20:00 | NUR ---
ASSESSMENT PER FLOWSHEET. SALINE LOCK PATENT RT ARM. UP PAL TO BR VOIDS WELL. O2 ON 3L/M PER NC.
--- NOTE | 2016-06-27 21:20 | NUR ---
MEDS GIVEN PER MAY. BLOOD DRAWN FOR VANCO TROUGH.
--- NOTE | 2016-06-27 22:00 | NUR ---
VANCOMYCIN HUNG PER MAY.
[2016-06-28] VITALS: BP 131/89
--- NOTE | 2016-06-28 00:37 | NUR ---
EYES CLOSED RESPIRATIONS WITH EASE AND UNLABORED. TURNS SELF IN BED.
--- NOTE | 2016-06-28 02:30 | NUR ---
EYES CLOSED RESPIRATIONS WITH EASE AND UNLABORED.
[2016-06-28 04:00] VITALS: BP 113/79
--- NOTE | 2016-06-28 05:30 | NUR ---
MEDS GIVEN PER MAR. NO CHANGES IN ASSESSMENT
[2016-06-28 05:38] LABS: BASOPHILS 0 % (0.0-2.0); EOSINOPHILS 0 % (0-7); HEMATOCRIT 27.6 % (42.0-54.0); HEMOGLOBIN 8.7 g/dL (13.5-17.5); IMMATURE GRANULOCYTES 0.3 % (0-5); LYMPHOCYTES 4.2 % (15-50); MCH 26.1 pg (26.0-34.0); MCHC 31.5 g/dL (31.0-37.0); MCV 82.9 fL (80.0-100.0); MONOCYTES 3.2 % (2-11); NEUTROPHILS 92.3 % (40-80); RBC 3.33 10x6/uL (4.20-6.10); RDW 16.5 % (11.5-14.5)
[2016-06-28 05:39] LABS: PLATELET COUNT 218 10x3/uL (130-400); WBC 9.7 10x3/uL (4.8-10.8)
[2016-06-28 05:59] LABS: ALBUMIN 2.8 g/dL (3.4-5.0); ALKALINE PHOSPHATASE 44 U/L (46-116); ALT (SGPT) 15 U/L (10-68); BILIRUBIN - TOTAL 0.39 mg/dL (0.2-1.3); CALC OSMOLALITY 271 mosm/kg (275-300); CALCIUM 8.5 mg/dL (8.5-10.1); CARBON DIOXIDE 23.9 mmol/L (21.0-32.0); CHLORIDE - SERUM 100 mmol/L (98-107); GLUCOSE 153 mg/dL (74-106); MAGNESIUM - SERUM 1.9 mg/dL (1.8-2.4); POTASSIUM - SERUM 4.7 mmol/L (3.5-5.1); PROTEIN - SERUM 6.1 g/dL (6.4-8.2); SODIUM 133 mmol/L (136-145); UREA NITROGEN 21 mg/dL (7-18); eGFR NON AFRICAN AMERICAN 76 mL/min (90-120)
--- NOTE | 2016-06-28 07:00 | NUR ---
REPORT RECEIVED FROM VOLUNTEER MANAGER NURSE. CALL LIGHT IN REACH.
[2016-06-28 08:05] VITALS: BP 135/67
--- NOTE | 2016-06-28 08:15 | NUR ---
ASSESSMENT COMPLETED. REFUSES SCDs. CALL LIGHT IN REACH. WILL CONTINUE WITH PLAN OF CARE.
--- NOTE | 2016-06-28 09:47 | NUR ---
AM MEDS ADMINISTERED PER STUDENT NURSE AND INSTRUCTOR.
--- NOTE | 2016-06-28 09:50 | NUR ---
SITTING UP ON BEDSIDE AT THIS TIME. DENIES QUESTIONS OR CONCERNS. RESPIRATIONS EVEN AND NON LABORED. CALL LIGHT IN REACH, WILL CONTINUE WITH PLAN OF CARE.
[2016-06-28 10:55] VITALS: Ht 185.4 cm; Wt 69.4 kg
--- NOTE | 2016-06-28 11:38 | NUR ---
IV RESITED TO LEFT FOREARM WITH 22 GA X1 STICK PER STUDENT NURSE. IV TO LEFT WRIST DC'D WITH TIP INTACT. CARAFATE AND FLORAJEN PO PER STUDENT NURSE AND INSTRUCTOR.
[2016-06-28 12:20] VITALS: BP 136/74
--- NOTE | 2016-06-28 12:47 | NUR ---
CEFEPIME IVPB PER ORDER. CALL LIGHT IN REACH.
--- NOTE | 2016-06-28 12:56 | NUR ---
IV TUBING CHANGED PER HOSPITAL POLICY.
--- NOTE | 2016-06-28 14:33 | NUR ---
LEVAQUIN 750 MG IVPB. RYAN BILLINGS PO. CALL LIGHT IN REACH.
[2016-06-28 15:37] VITALS: BP 142/82
--- NOTE | 2016-06-28 16:51 | NUR ---
PROTONIX AND CARAFATE PO. CALL LIGHT IN REACH.
--- NOTE | 2016-06-28 18:14 | NUR ---
NO CHANGES IN INITIAL ASSESSMENT. STILL REFUSES SCDs. CALL LIGHT IN REACH. WILL CONTINUE WITH PLAN OF CARE.
--- NOTE | 2016-06-28 19:30 | NUR ---
PT RECEIVED SITTING UP IN BED WATCHING TELEVISION. PT IS ALERT AND ORIENTED X4. BOWEL SOUNDS ACTIVE IN ALL FOUR QUADRANTS. ABD SOFT AND NONTENDER UPON PALPATION. IV TO RIGHT FOREARM NOTED TO BE SALINE LOCKED AT THIS TIME. CALL LIGHT AND H2O IN PT REACH.
[2016-06-28 21:33] VITALS: BP 141/97
[2016-06-29 01:00] VITALS: BP 138/87
--- NOTE | 2016-06-29 04:11 | NUR ---
PATIENT SLEEPING ON RIGHT SIDE. HOB 40 DEGREES. RR EVEN AND UNLABORED. O2 @ 3L VIA NC. 0 S/S OF DISTRESS. CALL LIGHT WITHIN REACH.
[2016-06-29 05:51] LABS: BASOPHILS 0 % (0.0-2.0); EOSINOPHILS 0.1 % (0-7); HEMATOCRIT 26.5 % (42.0-54.0); HEMOGLOBIN 8.4 g/dL (13.5-17.5); IMMATURE GRANULOCYTES 0.1 % (0-5); LYMPHOCYTES 8.2 % (15-50); MCHC 31.7 g/dL (31.0-37.0); MEAN PLATELET VOLUME 10.5 fL (7.4-10.4); MONOCYTES 12.6 % (2-11); PLATELET COUNT 203 10x3/uL (130-400); RBC 3.23 10x6/uL (4.20-6.10); RDW 16.4 % (11.5-14.5); WBC 10.4 10x3/uL (4.8-10.8)
[2016-06-29 06:17] LABS: ALBUMIN 2.7 g/dL (3.4-5.0); ALKALINE PHOSPHATASE 42 U/L (46-116); ALT (SGPT) 15 U/L (10-68); BILIRUBIN - TOTAL 0.44 mg/dL (0.2-1.3); CALC OSMOLALITY 269 mosm/kg (275-300); CALCIUM 8.5 mg/dL (8.5-10.1); CARBON DIOXIDE 24.7 mmol/L (21.0-32.0); CHLORIDE - SERUM 101 mmol/L (98-107); GLUCOSE 122 mg/dL (74-106); PROTEIN - SERUM 5.9 g/dL (6.4-8.2); SODIUM 133 mmol/L (136-145); UREA NITROGEN 21 mg/dL (7-18); eGFR NON AFRICAN AMERICAN 76 mL/min (90-120)
[2016-06-29 06:48] VITALS: BP 118/51
--- NOTE | 2016-06-29 07:15 | NUR ---
PATIENT IN BED WITH NO COMPLAINTS. SITTING UP WITH IV INTACT. CALL LIGHTW ITHIN REACH.
--- NOTE | 2016-06-29 07:15 | NUR ---
REPORT RECEIVED FROM SALES COMPENSATION ANALYST NURSE. CALL LIGHT IN REACH.
[2016-06-29 07:54] VITALS: BP 137/93
--- NOTE | 2016-06-29 09:20 | NUR ---
ASSESSMENT COMPLETED. AM MEDS ADMINISTERED PER STUDENT NURSE AND INSTRUCTOR. REFUSES SCDs. CALL LIGHT IN REACH. WILL CONTINUE WITH PLAN OF CARE.
[2016-06-29 11:33] VITALS: BP 137/83
--- NOTE | 2016-06-29 11:57 | NUR ---
FELIBERTO FARR PER BRAZING MACHINE OPERATOR.
--- NOTE | 2016-06-29 13:20 | NUR ---
NO NEEDS VOICED AT THIS TIME. CALL LIGHT IN REACH.
--- NOTE | 2016-06-29 15:20 | NUR ---
DENIES NEEDS AT THIS TIME. CALL LIGHT IN REACH.
--- NOTE | 2016-06-29 16:20 | NUR ---
RESTING WITH EYES CLOSED. RESP EVEN AND UNLABORED.
[2016-06-29 16:32] VITALS: BP 135/85
--- NOTE | 2016-06-29 18:37 | NUR ---
CARAFATE AND PROTONIX. WILL GO HOME TOMORROW PER SKINNY. STILL REFUSES SCDs. CALL LIGHT IN REACH. WILL CONTINUE WITH PLAN OF CARE.
--- NOTE | 2016-06-29 19:00 | NUR ---
RESTING WITH EYES CLOSED. RESP EVEN AND UNLABORED. CALL LIGHT IN REACH.
--- NOTE | 2016-06-29 20:00 | NUR ---
PT RECEIVED SITTING UP IN BED WATCHING TELEVISION. NO S/S OF DISTRESS NOTED. PT IS ALERT AND ORIENTED X4. NO IV NOTED AT THIS TIME, PT REFUSES IV INSERTION. CALL LIGHT AND H2O IN PT REACH. BED IN LOW POSITION. SIDE RIALS UP X2.
--- NOTE | 2016-06-30 02:00 | NUR ---
PT IN BED WITH NO DISTRESS. RESPIRATIONS EVEN AND UNLABORED. SIDE RAILS X 2. BED LOW. CALL LIGHT IN REACH.
[2016-06-30 05:40] LABS: BASOPHILS 0.1 % (0.0-2.0); EOSINOPHILS 0.1 % (0-7); HEMATOCRIT 25.3 % (42.0-54.0); HEMOGLOBIN 8.1 g/dL (13.5-17.5); IMMATURE GRANULOCYTES 0.6 % (0-5); LYMPHOCYTES 13.2 % (15-50); MCH 26.2 pg (26.0-34.0); MCV 81.9 fL (80.0-100.0); MEAN PLATELET VOLUME 10.3 fL (7.4-10.4); MONOCYTES 12.8 % (2-11); NEUTROPHILS 73.2 % (40-80); PLATELET COUNT 165 10x3/uL (130-400); RBC 3.09 10x6/uL (4.20-6.10); RDW 16.3 % (11.5-14.5); WBC 9.8 10x3/uL (4.8-10.8)
[2016-06-30 06:04] LABS: ALBUMIN 2.6 g/dL (3.4-5.0); ALKALINE PHOSPHATASE 43 U/L (46-116); ALT (SGPT) 17 U/L (10-68); CALC OSMOLALITY 265 mosm/kg (275-300); CALCIUM 8.9 mg/dL (8.5-10.1); CARBON DIOXIDE 25.1 mmol/L (21.0-32.0); CHLORIDE - SERUM 98 mmol/L (98-107); CREATININE - SERUM 0.8 mg/dL (0.6-1.3); GLUCOSE 108 mg/dL (74-106); POTASSIUM - SERUM 4.1 mmol/L (3.5-5.1); PROTEIN - SERUM 5.6 g/dL (6.4-8.2); SODIUM 130 mmol/L (136-145); UREA NITROGEN 23 mg/dL (7-18); eGFR NON AFRICAN AMERICAN > 90 mL/min (90-120)
--- NOTE | 2016-06-30 07:15 | NUR ---
PATIENT RECEIVED ALERT SITTING UP ON SIDE OF BED. NO SIGNS OF DISTRESS NOTED. DENIES NEEDS. BED IN LOW POSITION. CALL LIGHT IN REACH.
--- NOTE | 2016-06-30 08:34 | NUR ---
PATIENT SITTING UP ON SIDE OF BED ALERT. NO SIGNS OF DISTRESS NOTED. SCHEDULED MEDICATION ADMINISTERED. DENIES NEEDS. BED IN LOW POSITION. CALL LIGHT IN REACH.
[2016-06-30 08:40] VITALS: BP 139/87
--- NOTE | 2016-06-30 11:35 | NUR ---
PATIENT ALERT IN HIGH BRISCOE POSITION TALKING ON PHONE. NO SIGNS OF DISTRESS NOTED. SIDE RAILS UP X2. BED IN LOW POSITIOIN. CALL LIGHT IN REACH.
[2016-06-30 12:34] VITALS: BP 126/72
[2016-06-30] MEDS ORDERED: LEVAQUIN500 MG PO (15:01)
[2016-06-30] MEDS ORDERED: PREDNISONE10 MG PO (15:31)
--- NOTE | 2016-06-30 15:48 | NUR ---
ORDERED PREDNISONE TAPER DOSE CALLED TO [facility] ON [address] AND PER PATIENT REQUEST. PHARMACISTJIMBO RECEIVED ORDER.
--- NOTE | 2016-06-30 16:25 | NUR ---
D/C TEACHING PROVIDED TO PATIENT. STATES UNDERSTANDING. DENIES QUESTIONS.
--- NOTE | 2016-06-30 16:40 | NUR ---
PATIENT D/C HOME WITH FAMILY. TRANSFERRED DOWNSTAIRS VIA WHEELCHAIR WITH LENY NURSE AID
== END 2016-06-30 16:41 | disposition home or self-care (01) | DRG 189 ==
LOC: D.MS 13:25 → D.SDCHOLD 13:25 → D.MS 13:32
PROVIDERS: Family Medicine; ADMIT Family Medicine
DX: J96.21 Acute and chronic respiratory failure with hypoxia (principal); J15.6 Pneumonia due to other Gram-negative bacteria; J15.212 Pneumonia due to Methicillin resistant Staphylococcus aureus; J44.0 Chronic obstructive pulmonary disease with (acute) lower respiratory infection; J44.1 Chronic obstructive pulmonary disease with (acute) exacerbation; I50.32 Chronic diastolic (congestive) heart failure; E87.1 Hypo-osmolality and hyponatremia; D80.1 Nonfamilial hypogammaglobulinemia; D50.9 Iron deficiency anemia, unspecified; I11.0 Hypertensive heart disease with heart failure; E78.5 Hyperlipidemia, unspecified; I25.10 Atherosclerotic heart disease of native coronary artery without angina pectoris; K21.9 Gastro-esophageal reflux disease without esophagitis; I49.9 Cardiac arrhythmia, unspecified; Z99.81 Dependence on supplemental oxygen

== ENCOUNTER → 2016-08-10 10:27 | Outpatient (CLI) | payer MEDICARE, MEDICAID ==
[2016-06-28 10:55] VITALS: BMI 20.1
[~2016-08-10 10:27] MED LIST changes: +CARAFATE1 G/10 ML PO; +GAS-X125 M1 PO; +[UNRECOGNIZED DRUG - OTHER] PO
[2016-08-10 12:24] LABS: ALBUMIN 3.3 g/dL (3.4-5.0); BILIRUBIN - DIRECT 0.08 mg/dL (0.00-0.30); BILIRUBIN - INDIRECT 0.35 mg/dL (0.00-1.00); BILIRUBIN - TOTAL 0.43 mg/dL (0.2-1.3)
== END | disposition home or self-care (01) ==
LOC: D.LABREF 10:27
PROVIDERS: Family Medicine
DX: I25.10 Atherosclerotic heart disease of native coronary artery without angina pectoris (principal); K85.90 Acute pancreatitis without necrosis or infection, unspecified; K80.80 Other cholelithiasis without obstruction

== ENCOUNTER → 2016-08-24 08:29 | Outpatient (CLI) | payer MEDICARE, MEDICAID ==
[2016-06-28 10:55] VITALS: BMI 20.1
[2016-08-24 08:53] LABS: BASOPHILS 0.4 % (0-2); EOSINOPHILS 3.4 % (0-7); HEMATOCRIT 32.5 % (42.0-54.0); HEMOGLOBIN 10.3 g/dL (13.5-17.5); IMMATURE GRANULOCYTES 0.2 % (0-5); MCH 27.8 pg (26.0-34.0); MCHC 31.7 g/dL (31.0-37.0); MCV 87.8 fL (80.0-100.0); MEAN PLATELET VOLUME 9.3 fL (7.4-10.4); MONOCYTES 14.2 % (2-11); NEUTROPHILS 59.8 % (40-80); PLATELET COUNT 132 10x3/uL (130-400); RDW 17.6 % (11.5-14.5); WBC 5.4 10x3/uL (4.8-10.8)
[2016-08-24 09:10] LABS: ALBUMIN 3.5 g/dL (3.4-5.0); ALKALINE PHOSPHATASE 75 U/L (46-116); ALT (SGPT) 22 U/L (10-68); BILIRUBIN - TOTAL 0.37 mg/dL (0.2-1.3); CALC OSMOLALITY 272 mosm/kg (275-300); CALCIUM 9.2 mg/dL (8.5-10.1); CARBON DIOXIDE 29.8 mmol/L (21.0-32.0); CHLORIDE - SERUM 99 mmol/L (98-107); GLUCOSE 95 mg/dL (74-106); POTASSIUM - SERUM 4.2 mmol/L (3.5-5.1); PROTEIN - SERUM 7.2 g/dL (6.4-8.2); SODIUM 135 mmol/L (136-145); UREA NITROGEN 22 mg/dL (7-18); eGFR NON AFRICAN AMERICAN 76 mL/min (90-120)
== END | disposition home or self-care (01) ==
LOC: D.RAD 08-23 09:00 → D.LAB 08-23 09:15 → D.US 08-23 09:30 → D.RAD 08:29
PROVIDERS: Internal Medicine Gastroenterology
DX: R11.0 Nausea (principal); R63.4 Abnormal weight loss; R68.81 Early satiety

== ENCOUNTER → 2016-10-10 13:50 | Outpatient (CLI) | payer MEDICARE, MEDICAID ==
[2016-06-28 10:55] VITALS: BMI 20.1
== END | disposition home or self-care (01) ==
LOC: D.CT 13:50
DX: R63.4 Abnormal weight loss (principal); R11.0 Nausea; R68.81 Early satiety; R10.12 Left upper quadrant pain

== ENCOUNTER → 2016-10-22 13:28 | Outpatient (CLI) | payer MEDICARE, MEDICAID ==
[2016-06-28 10:55] VITALS: BMI 20.1
== END | disposition home or self-care (01) ==
LOC: D.US 13:28
DX: I65.23 Occlusion and stenosis of bilateral carotid arteries (principal)

== ENCOUNTER 2016-11-07 16:21 | Inpatient (IN) | payer MEDICARE, MEDICAID ==
[~2016-11-07] VITALS: Ht 185.4 cm; Wt 65.2 kg
--- NOTE | ~2016-11-07 | CN ---
PATIENT NAME:RAVEN QUIGLEY MEDICAL RECORD: [id number] : 34 LOCATION:D. D.2128 ADMIT DATE: 11/07/16 ACCOUNT: [id number] CONSULTING PHYSICIAN: SMILEY CASTELLANO MD REFERRING PHYSICIAN: JU RICO MD DATE OF CONSULTATION: 11/08/2016 CONSULT REQUESTING PHYSICIAN: Ju Rico MD. REASON FOR CONSULTATION: Pneumonia, acute exacerbation of COPD and congestive heart failure flare up. HISTORY OF PRESENT ILLNESS: Mr. Quigley is an 85-year-old gentleman, who has a history of COPD, home oxygen dependent, severe gastroesophageal reflux disease and common variable immunodeficiency syndrome. According to the patient, yesterday morning, the patient woke up around about 2:00 a.m. with worsening shortness of breath, coughing, wheezing, fever and chills. The ambulance was called and the patient was brought into the ER. On evaluation, it was found that the patient has significant leukocytosis, infiltrate right lung and elevated proBNP. He is coughing, which is productive of white-brown color sputum production. He also hears himself wheezing. There are no hemoptysis. Denies any chest pain. REVIEW OF SYSTEMS: Mainly in the history of present illness. PAST MEDICAL HISTORY: 1. COPD of severe degree, home oxygen dependent. 2. Chronic hypoxic respiratory failure. 3. Severe gastroesophageal reflux disease with recurrent aspiration pneumonia. 4. Severe pulmonary hypertension. 5. Recurrent pneumonia. 6. Coronary artery disease. 7. Peripheral vascular disease. 8. History of thrombocytosis for which he follows with Dr. Norton. 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 Norton. 9. History of pancreatitis. PAST SURGICAL HISTORY: 1. Cholecystectomy. 2. Bilateral carotid endarterectomy. 3. Amputation of the third, fourth and fifth finger. ALLERGIES: HE IS ALLERGIC TO LIDOCAINE, PROCAINE AND NARCAN. PRESENT MEDICATIONS: He is on meropenem IV and Levaquin IV. His other medication is reviewed. PERSONAL AND SOCIAL HISTORY: The patient is an ex-smoker, nondrinker. FAMILY HISTORY: Noncontributory. PHYSICAL EXAMINATION: GENERAL: The patient is now lying comfortably in bed. He is not in acute distress. CONSULT REPORT [id number] TYLOR,RAVEN ANT VITAL SIGNS: The blood pressure is 101/44, pulse is 89, respirations 16, temperature 97.5 and SPO2 is 98% on 3 liters nasal cannula. HEENT: Conjunctivae is pink, sclerae nonicteric. NECK: Supple. No JVD. CHEST: Excursion is minimal on both sides. There are bilateral crackles, wheeze on forceful expiration. HEART: Rhythm regular, normal sound, no murmur. ABDOMEN: Soft, bowel sounds present. No hepatosplenomegaly. RECTAL: Deferred. EXTREMITIES: No cyanosis, no clubbing and no pedal edema. SKIN: Warm, normal turgor. CENTRAL NERVOUS SYSTEM: The patient is awake and alert. There is no obvious cranial nerve abnormality. The gait was not tested. LABORATORY DATA: CBC: WBC 18.5, hemoglobin 9.8, hematocrit 29 and the platelet count is 118. Chemistry: Sodium 133, potassium is 5, BUN is 22, creatinine 1.9 and glucose 137. INR is 1.20. IMAGING: Chest radiograph, there is right lung infiltrate, increased interstitial marking on the left. IMPRESSION: 1. Uwjpj-os-omotxst hypoxic respiratory failure. 2. Acute exacerbation of chronic obstructive pulmonary disease. 3. Pneumonia, right lower lobe, most likely community-acquired pneumonia versus aspiration with the patient's history of severe gastroesophageal reflux disease. 4. Leukocytosis secondary to pneumonia. 5. Congestive heart failure with elevated proBNP. 6. Severe pulmonary hypertension. 7. IgG deficiency. RECOMMENDATION: 1. Continue meropenem. Continue Levaquin. Start methylprednisolone IV. Change Lasix to IV 20 mg b.i.d. Discontinue the IV fluids. 2. Supplemental oxygen. 3. Albuterol/ipratropium nebulizer, Brovana and budesonide nebulizer. 4. Sputum culture sensitivity. 5. Follow up labs and chest radiograph. Check the cardiac echo. Dr. Rico, thank you for involving me in the care of Mr. Quigley. TRANSINT:[id number] Voice Confirmation ID: [id number] DOCUMENT ID: [id number] SMILEY CASTELLANO MD CC: TIMOTEO LANDAVERDE MD [id number] DICTATION DATE: 11/08/16 1505 RADIO TIME SALES SUPERVISOR: 11/08/162013 ADM IN [facility] [address] [place] [address]
--- NOTE | ~2016-11-07 | EC ---
PATIENT:RAVEN SNIDER DATE OF SERVICE: 11/07/16 SEX: M MEDICAL RECORD: [id number] DATE OF : 34 LOCATION:D.M2 D.212 AGE OF PATIENT: 85 ADMISSION DATE: 11/07/16 REFERRING PHYSICIAN: INTERPRETING PHYSICIAN: ROEMO RAMOS MD ECHOCARDIOGRAM REPORT ECHO CHARGES 4 ECHO COMPLETE CLINICAL DIAGNOSIS: PULMONARY HTN/CHF ECHOCARDIOGRAPHIC MEASUREMENTS (adult normal given) AC root (d.<3.7cm) 3.7 cm LV Septum d (<1.2 cm> 1.1 cm Valve Excursion 1.6 cm LV Septum (systole) 1.8 cm Left Atria (s.<4.0cm> 4.5 cm LVPW d(<1.2cm) 1.1 cm RV (d.<2.3cm) 2.1 cm LVPW (sytole) 1.9 cm LV diastole(<5.6CM) 5.4 cm MV E-F(>70mm/sec) cm LV systole 2.4 cm LVOT Diameter 1.9 cm MV exc.(>10mm) cm Est.ejection fraction (50-75%) % Pericardial Effusion N DOPPLER: LVIT cm/sec A 73.0 cm/sec E 105 cm/sec LA cm/sec RVSP 74.0 mmHg LVOT 106 cm/sec AOP1/2T m/s Asc. Ao 143 cm/sec RVOT 58.0 cm/sec RA cm/sec PA 86.0 cm/sec AV Gradient Peak 8.2 mmHg AV Mean 3.9 mmHg AV Area 1.9 cm MV Gradient Peak 5.2 mmHg MV Mean 1.6 mmHg MV Area cm COMMENTS: Connection Worker: Patric SANTANAOE French Professor: 1 Dr. Ramos TAPE# PACS DATE OF SERVICE: 11/09/2016 Echocardiogram FINDINGS: 1. Left ventricular chamber size is within normal limits. Left ventricular systolic function is normal. Overall ejection fraction estimated at 65%. 2. Left atrium is enlarged at 4.5 cm. Right atrium and right ventricular chamber sizes are as well mildly dilated. 3. Valvular structures have normal structure and motion. ECHOCARDIOGRAM REPORT [id number] RAVEN SNIDER 4. Doppler interrogation reveals moderate tricuspid regurgitation, mild to moderate mitral regurgitation. No other valvular insufficiency or stenosis; however, pulmonary systolic pressure is significantly elevated estimated at 74 mmHg. 5. No evidence of pericardial effusion or left ventricular thrombus. TRANSINT:[id number] Voice Confirmation ID: [id number] DOCUMENT ID: [id number] ROMEO RAMOS MD CC: [id number] DICTATION DATE: 11/09/16 1231 HOSE COUPLING JOINER: 11/09/162008 ADM IN [facility] [address] [place] [address]
[2016-11-07 17:39] LABS: BASOPHILS 0.1 % (0-2); EOSINOPHILS 0 % (0-7); HEMOGLOBIN 9.8 g/dL (13.5-17.5); IMMATURE GRANULOCYTES 0.4 % (0-5); LYMPHOCYTES 2.7 % (15-50); MCH 30.7 pg (26.0-34.0); MCHC 33.8 g/dL (31.0-37.0); MCV 90.9 fL (80.0-100.0); MONOCYTES 3.1 % (2-11); NEUTROPHILS 93.7 % (40-80); PLATELET COUNT 118 10x3/uL (130-400); RBC 3.19 10x6/uL (4.20-6.10); RDW 14.5 % (11.5-14.5); WBC 18.5 10x3/uL (4.8-10.8)
[2016-11-07 17:57] LABS: ANION GAP 14.5 mmol/L (8-16); BILIRUBIN - TOTAL 0.76 mg/dL (0.2-1.3); CARBON DIOXIDE 26.5 mmol/L (21.0-32.0); CREATININE - SERUM 1.9 mg/dL (0.6-1.3); PROTEIN - SERUM 6.5 g/dL (6.4-8.2)
[2016-11-07 17:57] LABS: INR 1.2 (0.85-1.17); PROTIME 15.1 SECONDS (11.6-15.0)
[2016-11-07 18:06] LABS: TROPONIN-I 0.034 ng/mL (0.000-0.060)
[2016-11-07 19:00] VITALS: BP 100/51
--- NOTE | 2016-11-07 19:45 | NUR ---
PT ARRIVES VIA STRETCHER TO ROOM 2128. ASSISTED TO BED. STEADY GAIT NOTED. O2 4LPM NC. NSR ON MONITOR. ADMISSION HISTORY AND ASSESSMENT COMPLETED. UNIT ROUTINES AND PROTOCOLS DISCUSSED WITH PT, HE VERBALIZES UNDERSTANDING. CALL LIGHT [id number] WITHIN REACH. WILL CONT TO MONITOR.
[2016-11-07 22:06] VITALS: BMI 19.9
[2016-11-08 01:39] VITALS: BP 91/42
[2016-11-08 05:32] VITALS: BP 113/47
[2016-11-08 10:02] VITALS: BP 130/57
[2016-11-08 12:17] VITALS: BP 101/44
[2016-11-08 12:20] LABS: APPEARANCE CLEAR (CLEAR); BILIRUBIN NEGATIVE (NEGATIVE); COLOR YELLOW (YELLOW); GLUCOSE NEGATIVE (NEGATIVE); KETONE NEGATIVE (NEGATIVE); LEUKOCYTE ESTERASE NEGATIVE (NEGATIVE); NITRITE NEGATIVE (NEGATIVE); PROTEIN NEGATIVE (NEGATIVE); SPECIFIC GRAVITY 1.015 (1.005-1.020); UROBILINOGEN NORMAL (NORMAL)
[2016-11-08 14:34] VITALS: Ht 185.4 cm; Wt 65.2 kg
[2016-11-08 16:00] VITALS: BP 111/56
--- NOTE | 2016-11-08 19:00 | NUR ---
PT SITTING IN BED ATTENTION TOWARDS TELEVISION. DENIES NEEDS AT THIS TIME. WILL CONITNUE TO MONITOR.
[2016-11-08 20:00] VITALS: BP 114/62
[2016-11-09 05:24] VITALS: BP 133/59
--- NOTE | 2016-11-09 06:08 | NUR ---
PT LEFT FLOOR AT THIS TIME VIA WHEELCHAIR ACCOMPANIED BY RADIOLOGY STAFF
[2016-11-09 06:23] LABS: BASOPHILS 0 % (0-2); EOSINOPHILS 0 % (0-7); HEMATOCRIT 28.2 % (42.0-54.0); HEMOGLOBIN 9.5 g/dL (13.5-17.5); IMMATURE GRANULOCYTES 0.1 % (0-5); LYMPHOCYTES 3.2 % (15-50); MCH 30.2 pg (26.0-34.0); MCHC 33.7 g/dL (31.0-37.0); MCV 89.5 fL (80.0-100.0); MEAN PLATELET VOLUME 10.5 fL (7.4-10.4); MONOCYTES 2.7 % (2-11); RBC 3.15 10x6/uL (4.20-6.10); RDW 14.6 % (11.5-14.5)
[2016-11-09 06:34] LABS: PLATELET COUNT 144 10x3/uL (130-400); WBC 10.9 10x3/uL (4.8-10.8)
[2016-11-09 06:36] LABS: ANION GAP 11.9 mmol/L (8-16); CALCIUM 8.4 mg/dL (8.5-10.1); CARBON DIOXIDE 27.2 mmol/L (21.0-32.0); CREATININE - SERUM 1.3 mg/dL (0.6-1.3)
[2016-11-09 06:37] LABS: POTASSIUM - SERUM 4.1 mmol/L (3.5-5.1)
--- NOTE | 2016-11-09 07:40 | NUR ---
ASSESSMENT DONE. DENIES NEEDS.
[2016-11-09 07:43] VITALS: BP 135/69
--- NOTE | 2016-11-09 09:27 | NUR ---
RESTS IN BED WITH CALL LIGHT IN REACH. RESP UL ON . WILL CONT. PLAN OF CARE.
[2016-11-09 15:45] VITALS: BP 124/66
--- NOTE | 2016-11-09 18:05 | NUR ---
WITHOUT CHANGES OR DISTRESS NOTED AT THIS TIME. DENIES NEEDS.
[2016-11-09 20:00] VITALS: BP 125/68
--- NOTE | 2016-11-09 20:18 | NUR ---
PT STATES NEEDING A LAXATIVE. RELATES HE HAS HAD 2 DOSES OF MIRALAX TODAY AND NOTHING HAS HELPED. ALSO REPORTS HE IS FEELING NAUSEATED D/T AN OVERLY FULL FEELING FROM CONSTIPATION. REPORTS USING MILK OF MAG AT HOME FOR TIMES OF CONSTIPATION. ORDER OBTAINED FOR ONE TIME DOSE MOM. WILL MONITOR.
[2016-11-10] VITALS: BP 141/76
[2016-11-10 04:00] VITALS: BP 124/61
[2016-11-10 05:51] LABS: BASOPHILS 0 % (0-2); EOSINOPHILS 0 % (0-7); HEMATOCRIT 29.5 % (42.0-54.0); HEMOGLOBIN 10.1 g/dL (13.5-17.5); IMMATURE GRANULOCYTES 0.2 % (0-5); LYMPHOCYTES 5.2 % (15-50); MCH 30.5 pg (26.0-34.0); MCHC 34.2 g/dL (31.0-37.0); MCV 89.1 fL (80.0-100.0); MEAN PLATELET VOLUME 11.2 fL (7.4-10.4); MONOCYTES 4.3 % (2-11); NEUTROPHILS 90.3 % (40-80); PLATELET COUNT 149 10x3/uL (130-400); RBC 3.31 10x6/uL (4.20-6.10); RDW 14.4 % (11.5-14.5); WBC 9.5 10x3/uL (4.8-10.8)
[2016-11-10 06:05] LABS: ANION GAP 8.3 mmol/L (8-16); CARBON DIOXIDE 31.5 mmol/L (21.0-32.0); CREATININE - SERUM 1.1 mg/dL (0.6-1.3); POTASSIUM - SERUM 3.8 mmol/L (3.5-5.1)
--- NOTE | 2016-11-10 07:30 | NUR ---
ASSESSMENT COMPLETED. TELEMERTY SHOWS SR 67. 02 AT 2 L/M PER NC. RIGHT HAND WITH 3 FINGERS AMPUTATED. UP AB PAL. DENIES ANY NEEDS. CALL LIGHT IN REACH WITH SR UP. WILL MONITOR
--- NOTE | 2016-11-10 08:00 | NUR ---
RESTING QUIETLY NAD NOTED
[2016-11-10 08:04] VITALS: BP 132/67
[2016-11-10 13:02] VITALS: BP 136/70
[2016-11-10 16:26] VITALS: BP 128/65
--- NOTE | 2016-11-10 18:54 | NUR ---
HOB UP. DENIES ANY NEEDS. CALL LIGHT IN REACH WITH SR UP. WILL MONITOR
--- NOTE | 2016-11-10 19:20 | NUR ---
RECEIVED REPORT, WILL ASSUME CARE OF PT, PT SLEEPING, BED IS LOW, SRX2, CALL LIGHT IN REACH, WILL CONTINUE PLAN OF CARE
[2016-11-10 20:00] VITALS: BP 124/56
[2016-11-11] VITALS: BP 125/62
--- NOTE | 2016-11-11 02:05 | NUR ---
ASSESSMENT COMPLETE, TELEMTRY-SR, IV-LAC-SL, 02-2L, CALL LIGHT IN REACH, WILL CONTINUE PLAN OF CARE
[2016-11-11 04:00] VITALS: BP 147/78
[2016-11-11 05:15] LABS: BASOPHILS 0 % (0-2); EOSINOPHILS 0 % (0-7); HEMATOCRIT 31.6 % (42.0-54.0); HEMOGLOBIN 10.7 g/dL (13.5-17.5); IMMATURE GRANULOCYTES 0.2 % (0-5); LYMPHOCYTES 9.9 % (15-50); MCH 30.1 pg (26.0-34.0); MCHC 33.9 g/dL (31.0-37.0); MCV 88.8 fL (80.0-100.0); MEAN PLATELET VOLUME 10.3 fL (7.4-10.4); MONOCYTES 9.8 % (2-11); NEUTROPHILS 80.1 % (40-80); PLATELET COUNT 177 10x3/uL (130-400); RBC 3.56 10x6/uL (4.20-6.10); WBC 9.1 10x3/uL (4.8-10.8)
[2016-11-11 05:29] LABS: CALCIUM 8.7 mg/dL (8.5-10.1); CARBON DIOXIDE 31.7 mmol/L (21.0-32.0); CREATININE - SERUM 1.1 mg/dL (0.6-1.3); POTASSIUM - SERUM 3.7 mmol/L (3.5-5.1)
--- NOTE | 2016-11-11 07:39 | NUR ---
AM ROUNDING DONE WITH PATIENT APPEARING ASLEEP SITTING AT 45 DEGREE IN BED WITH O2 AT 2L PER NC. LEFT AC IV WITH NS AT KVO WITHOUT PROBLEMS. ON HEART MONITOR SHOWING SB, HR 51. ON EP, LAB VALUES ARE GOOD THIS AM. WILL CPOC.
[2016-11-11 08:11] VITALS: BP 143/66
[2016-11-11 12:23] VITALS: BP 122/60
[2016-11-11 16:27] VITALS: BP 108/55
--- NOTE | 2016-11-11 19:51 | NUR ---
RESUMED CARE OF PT, LYING IN BED RESPIRATIONS EVEN AND UNLABORED ON 2LPM VIA NC. 71 SR ON TELEMETRY. LEFT AC INFUSING NS @ 15. NO NEEDS AT THIS TIME, WILL CONTINUE TO MONITOR. SEE NURSE ASSESSMENT. CALL LIGHT IN REACH.
[2016-11-11 20:00] VITALS: BP 144/66
[2016-11-12] VITALS: BP 138/59
--- NOTE | 2016-11-12 01:08 | NUR ---
LYING IN BED WITH EYES CLOSED, CALL LIGHT IN REACH. WILL CONTINUE TO MONITOR.
[2016-11-12 04:00] VITALS: BP 127/67
[2016-11-12 04:40] LABS: BASOPHILS 0 % (0-2); EOSINOPHILS 0 % (0-7); HEMATOCRIT 31.3 % (42.0-54.0); HEMOGLOBIN 10.5 g/dL (13.5-17.5); IMMATURE GRANULOCYTES 0.3 % (0-5); LYMPHOCYTES 8.3 % (15-50); MCH 30.1 pg (26.0-34.0); MCHC 33.5 g/dL (31.0-37.0); MCV 89.7 fL (80.0-100.0); MEAN PLATELET VOLUME 10.3 fL (7.4-10.4); MONOCYTES 8.3 % (2-11); NEUTROPHILS 83.1 % (40-80); PLATELET COUNT 169 10x3/uL (130-400); RBC 3.49 10x6/uL (4.20-6.10); RDW 14.2 % (11.5-14.5)
[2016-11-12 04:44] LABS: WBC 5.9 10x3/uL (4.8-10.8)
[2016-11-12 05:19] LABS: CALC OSMOLALITY 274 mosm/kg (275-300); CALCIUM 8.5 mg/dL (8.5-10.1); CARBON DIOXIDE 32.4 mmol/L (21.0-32.0); CHLORIDE - SERUM 96 mmol/L (98-107); CREATININE - SERUM 0.9 mg/dL (0.6-1.3); GLUCOSE 132 mg/dL (74-106); POTASSIUM - SERUM 3.9 mmol/L (3.5-5.1); SODIUM 133 mmol/L (136-145); UREA NITROGEN 31 mg/dL (7-18); eGFR NON AFRICAN AMERICAN 85 mL/min (90-120)
--- NOTE | 2016-11-12 06:40 | NUR ---
NO CHANGES FROM PREVIOUS ASSESSMENT, AM MEDS GIVEN. CALL LIGHT IN REACH.
--- NOTE | 2016-11-12 07:24 | NUR ---
AM ROUNDS- PT IN BED, RECEIVING AN UPDRAFT. RESP EVEN AND UNLABORED ON 2L. BED LOW AND WHEELS LOCKED, BEDSIDE RAILS X2. LT AC SL, CALL LIGTH IN REACH, NAD NOTED, WILL CONTINUE TO MONITOR.
--- NOTE | 2016-11-12 09:12 | NUR ---
ADMINISTERED MORNING MEDS. PT IN BED, WATCHING TV. DENIES ANY NEEDS AT THIS TIME. CALL LIGHT IN REACH, NAD NOTED, WILL CONTINUE TO MONITOR.
[2016-11-12 09:27] VITALS: BP 135/65
[2016-11-12] MEDS ORDERED: LEVAQUIN500 MG PO (10:43)
[2016-11-12] MEDS ORDERED: PREDNISONE10 MG PO (10:43)
[2016-11-12 12:00] VITALS: BP 102/50
--- NOTE | 2016-11-12 15:50 | NUR ---
PROVIDED VERBAL AND WRITTEN D/C INSTRUCTIONS TO PT. PT VERBALIZED UNDERSTANDING REGARDING TEACHING. D/C LT AC IV, TIP INTACT. PT DENIE ANY NEEDS AT THIS TIME, WILL NOTIFY NURSE OR PARTY PLAN SELLING DISTRIBUTOR WHEN RIDE GETS HERE. NAD NOTED, WILL CONTINUE TO MONITOR.
--- NOTE | 2016-11-12 16:29 | NUR ---
PT LEFT UNIT VIA WHEELCHIAR, ACCOMPANIED BY GRANDDAUGTHER, NAD NOTED.
--- NOTE | 2016-11-12 18:31 | NUR ---
Patient Name: RAVEN SNIDER Admission Status: ER Accout number: [id number] Admission Date: 11-07-2016 : 1930 Admission Diagnosis:CHRONIC OBSTRUCTIVE PULMON DISEASE W ACUTE LOWER RESP I Attending: JO Current LOS: 5 Anticipated DC Date: 11-12-2016 Planned Disposition: Home Primary Insurance: [employer] CHOICE PPO MCR ADVANT Discharge Planning Comments: * Is the patient Alert and Oriented? Yes 0 * How many steps to enter\exit or inside your home? RAMP 0 * PCP DR. LANDAVERDE 0 * Pharmacy [facility] 0 * Preadmission Environment Home with Family 0 * ADLs Independent 0 * Equipment Cane Nebulizer Oxygen Shower Chair Walker Wheelchair 0 * Other Equipment HOME AND PORTABLE OXYGEN - [employer], MEDICAL EQUIPMENT PROVIDER 0 * List name and contact numbers for known caregivers / representatives who currently or will assist patient after discharge: MOHAMUD TAMEZ, GRANDDAUGHTER, 0 * Community resources currently utilized Other 0 * Please name any agencies selected above. [facility] 0 * Additional services required to return to the preadmission environment? No 0 * Can the patient safely return to the preadmission environment? Yes 0 * Has this patient been hospitalized within the prior 30 days at any hospital? No 0 CM MET WITH PT IN ROOM TO DISCUSS DISCHARGE PLANNING AND NEEDS. PT REPORTS LIVING AT HOME INDEPENDENTLY GRANDDAUGHTER. PT REPORTS HAVING ALL NEEDED MEDICAL EQUIPMENT FROM [employer]. PT HAS NO OUTSIDE SERVICES OTHER THAN [facility]ISTING IN THE HOME. CM DISCUSSED AVAILABILITY OF HOME HEALTH, REHAB SERVICES AND MEDICAL EQUIPMENT. PT DENIES DISCHARGE NEEDS, REPORTS HIS GRANDDAUGHTER IS ON HER WAY NOW TO PICK HIM UP FOR DISCHARGE HOME. IMPORTANT MESSAGE FROM MEDICARE PROVIDED AND EXPLAINED. Financial Planning Assistant: Jaziel Zamora
--- NOTE | 2016-11-13 16:08 | DS ---
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 HOSPITAL COURSE: This is a gentleman of Dr. Rojas, admitted with diagnoses as outlined above. Details are well-outlined in the history of the present illness, H&P. All events, lab procedures and diagnostic testing are well documented in the records. The patient was admitted. Appropriate home medicines continued. He was started on IV antibiotics, nebulized medications. PPI for GI prophylaxis. Scuds for DVT prophylaxis. CONSULTANTS: Dr. Smith with pulmonary. His recommendations were followed. The patient improved. He is walking 500 feet. Echocardiogram shows EF of 65, RVSP 74. He has known pulmonary hypertension. Negative pericardial effusion, negative left ventricular thrombus. He has moderate tricuspid regurg, mild to moderate mitral regurg. Speech therapy following. He had no signs and symptoms of aspiration. He is stable for dismissal home today. He is afebrile, pulse 64, respirations 16, blood pressure 135/65, O2 sat 96%. Please refer to med rec. DIAGNOSES AT DISCHARGE: They are the same as above, that also include jsuyw-uh-lmoanwm hypoxic respiratory failure, improved, acute exacerbation of chronic obstructive pulmonary disease, improved, pneumonia, right lower lobe, most likely community-acquired, improved, leukocytosis, resolved, anemia of chronic disease, acute kidney injury, resolved and congestive heart failure. DIAGNOSTIC DATA: Chest x-ray today shows stable chest. LABORATORY DATA: Lab values for today, white count 5.9, hemoglobin 10.5 and platelets of 169. Sodium 133, potassium 3.9, chloride 96, CO2 of 32, BUN 31, serum creatinine 0.9, calcium 8.5. Please refer to med rec. FOLLOWUP: We will have him followup with house calls. Follow up with Dr. Smith and follow up with his live source operator. Greater than 30 minutes was spent on this discharge. TRANSINT:[id number] Voice Confirmation ID: [id number] DOCUMENT ID: [id number] DISCHARGE SUMMARY REPORT [id number] RAVEN SNIDER Dictated By: SKINNY SMART RN I have interviewed/examined the above patient and agree with these documented findings. ARNAUD OBRIEN MD at 1608 CC: [id number] DICTATION DATE: 11/12/16 1238 ADMINISTRATIVE ACCOUNTANT: 11/13/16 0101 DIS IN 11/12/16 [facility] [address] [place] [address]
== END 2016-11-12 16:30 | disposition home or self-care (01) | DRG 189 ==
LOC: D.ER 16:21 → D.M2 18:35
PROVIDERS: Emergency Medicine; Nurse Practitioner Family; ADMIT Family Medicine
DX: J96.21 Acute and chronic respiratory failure with hypoxia (principal); J18.9 Pneumonia, unspecified organism; J44.0 Chronic obstructive pulmonary disease with (acute) lower respiratory infection; N17.9 Acute kidney failure, unspecified; D80.3 Selective deficiency of immunoglobulin G [IgG] subclasses; J44.1 Chronic obstructive pulmonary disease with (acute) exacerbation; I27.2 Other secondary pulmonary hypertension; I49.9 Cardiac arrhythmia, unspecified; E88.09 Other disorders of plasma-protein metabolism, not elsewhere classified; D63.8 Anemia in other chronic diseases classified elsewhere; I25.10 Atherosclerotic heart disease of native coronary artery without angina pectoris; I73.9 Peripheral vascular disease, unspecified; I50.9 Heart failure, unspecified; I08.1 Rheumatic disorders of both mitral and tricuspid valves; K21.9 Gastro-esophageal reflux disease without esophagitis; Z87.891 Personal history of nicotine dependence

== ENCOUNTER 2016-12-13 10:58 | Inpatient (IN) | payer MEDICARE, MEDICAID | END 2016-12-17 14:40 | disposition home or self-care (01) | DRG 189 | LOC: D.ER 10:58 → D.SDCHOLD 12:47 → D.M2 14:17 → D.SDCHOLD 12-14 15:48 → D.M2 12-14 15:51 | PROVIDERS: ADMIT Family Medicine Adult Medicine | DX: J96.21 Acute and chronic respiratory failure with hypoxia (principal); J18.9 Pneumonia, unspecified organism; J44.0 Chronic obstructive pulmonary disease with (acute) lower respiratory infection; J44.1 Chronic obstructive pulmonary disease with (acute) exacerbation; I50.32 Chronic diastolic (congestive) heart failure; D80.1 Nonfamilial hypogammaglobulinemia; E87.1 Hypo-osmolality and hyponatremia; J98.11 Atelectasis; I11.0 Hypertensive heart disease with heart failure; E78.5 Hyperlipidemia, unspecified; K21.9 Gastro-esophageal reflux disease without esophagitis; Z99.81 Dependence on supplemental oxygen; I25.10 Atherosclerotic heart disease of native coronary artery without angina pectoris; Z86.73 Personal history of transient ischemic attack (TIA), and cerebral infarction without residual deficits; Z87.891 Personal history of nicotine dependence; I73.9 Peripheral vascular disease, unspecified; I27.2 Other secondary pulmonary hypertension; D50.9 Iron deficiency anemia, unspecified ==

== ENCOUNTER 2016-12-30 10:34 | Emergency (ER) | payer MEDICARE, MEDICAID ==
[2016-12-14 14:08] VITALS: BMI 18.4
[~2016-12-30 10:34] MED LIST changes: +ANORO ELLIPTA1 EACH INH; +MUCINEX600 MG PO
[2016-12-30 11:16] LABS: BASOPHILS 0.3 % (0-2); EOSINOPHILS 4.9 % (0-7); HEMATOCRIT 28.4 % (42.0-54.0); HEMOGLOBIN 9.5 g/dL (13.5-17.5); IMMATURE GRANULOCYTES 0.3 % (0-5); LYMPHOCYTES 10.5 % (15-50); MCH 30.2 pg (26.0-34.0); MCHC 33.5 g/dL (31.0-37.0); MCV 90.2 fL (80.0-100.0); MEAN PLATELET VOLUME 9.2 fL (7.4-10.4); MONOCYTES 10.6 % (2-11); NEUTROPHILS 73.4 % (40-80); PLATELET COUNT 154 10x3/uL (130-400); RBC 3.15 10x6/uL (4.20-6.10); RDW 13.9 % (11.5-14.5); WBC 6.1 10x3/uL (4.8-10.8)
[2016-12-30 11:38] LABS: ALBUMIN 2.5 g/dL (3.4-5.0); ALT (SGPT) 14 U/L (10-68); BILIRUBIN - TOTAL 0.44 mg/dL (0.2-1.3); CALC OSMOLALITY 265 mosm/kg (275-300); CALCIUM 8.9 mg/dL (8.5-10.1); CARBON DIOXIDE 27.7 mmol/L (21.0-32.0); CHLORIDE - SERUM 96 mmol/L (98-107); CREATINE KINASE 19 UL (21-232); CREATININE - SERUM 1.1 mg/dL (0.6-1.3); GLUCOSE 113 mg/dL (74-106); MAGNESIUM - SERUM 1.7 mg/dL (1.8-2.4); POTASSIUM - SERUM 4.5 mmol/L (3.5-5.1); PRO BNP 1196 pg/mL (0-450); PROTEIN - SERUM 6.3 g/dL (6.4-8.2); SODIUM 131 mmol/L (136-145); UREA NITROGEN 17 mg/dL (7-18); eGFR NON AFRICAN AMERICAN 68 mL/min (90-120)
[2016-12-30 11:45] LABS: TROPONIN-I < 0.017 ng/mL (0.000-0.060)
[2016-12-30 11:58] LABS: ALKALINE PHOSPHATASE 61 U/L (46-116)
== END 2016-12-30 14:00 | disposition home or self-care (01) ==
LOC: D.ER 10:34
PROVIDERS: Emergency Medicine
DX: J45.901 Unspecified asthma with (acute) exacerbation (principal); R06.00 Dyspnea, unspecified; I50.9 Heart failure, unspecified; J44.9 Chronic obstructive pulmonary disease, unspecified; I45.10 Unspecified right bundle-branch block

== ENCOUNTER 2017-01-11 18:41 | Emergency (ER) | payer MEDICARE, MEDICAID ==
[2016-12-14 14:08] VITALS: BMI 18.4
[2017-01-11 19:39] LABS: BASOPHILS 0.7 % (0-2); EOSINOPHILS 4.9 % (0-7); HEMATOCRIT 26.6 % (42.0-54.0); HEMOGLOBIN 8.9 g/dL (13.5-17.5); IMMATURE GRANULOCYTES 0.7 % (0-5); MCHC 33.5 g/dL (31.0-37.0); MCV 86.6 fL (80.0-100.0); MEAN PLATELET VOLUME 10.6 fL (7.4-10.4); MONOCYTES 15.4 % (2-11); NEUTROPHILS 62.3 % (40-80); RBC 3.07 10x6/uL (4.20-6.10); WBC 4.5 10x3/uL (4.8-10.8)
[2017-01-11 19:41] LABS: PLATELET COUNT 101 10x3/uL (130-400)
[2017-01-11 19:50] LABS: ALBUMIN 2.6 g/dL (3.4-5.0); ALKALINE PHOSPHATASE 50 U/L (46-116); ALT (SGPT) 15 U/L (10-68); BILIRUBIN - TOTAL 0.38 mg/dL (0.2-1.3); CALC OSMOLALITY 260 mosm/kg (275-300); CALCIUM 8.5 mg/dL (8.5-10.1); CARBON DIOXIDE 21.8 mmol/L (21.0-32.0); CHLORIDE - SERUM 99 mmol/L (98-107); CREATININE - SERUM 0.9 mg/dL (0.6-1.3); GLUCOSE 93 mg/dL (74-106); POTASSIUM - SERUM 4.4 mmol/L (3.5-5.1); PROTEIN - SERUM 6.2 g/dL (6.4-8.2); SODIUM 130 mmol/L (136-145); UREA NITROGEN 13 mg/dL (7-18); eGFR NON AFRICAN AMERICAN 85 mL/min (90-120)
[2017-01-11 19:59] LABS: AMYLASE - SERUM 29 U/L (25-115); CREATINE KINASE 26 UL (21-232); LIPASE 78 U/L (73-393); PRO BNP 1765 pg/mL (0-450)
[2017-01-11 20:03] LABS: TROPONIN-I < 0.017 ng/mL (0.000-0.060)
[2017-01-11 22:12] LABS: APPEARANCE CLEAR (CLEAR); BILIRUBIN NEGATIVE (NEGATIVE); COLOR DK YELLOW (YELLOW); GLUCOSE NEGATIVE (NEGATIVE); KETONE SMALL mg/dL (NEGATIVE); NITRITE POSITIVE (NEGATIVE); PROTEIN NEGATIVE (NEGATIVE); UROBILINOGEN NORMAL (NORMAL)
[2017-01-11 22:14] LABS: BACTERIA FEW /hpf (NONE SEEN); WHITE CELLS - URINE 0-5 /hpf (0-5)
== END 2017-01-12 00:40 | disposition home or self-care (01) ==
LOC: D.ER 18:41
PROVIDERS: Family Medicine
DX: D64.9 Anemia, unspecified (principal); N39.0 Urinary tract infection, site not specified; J44.9 Chronic obstructive pulmonary disease, unspecified; I49.3 Ventricular premature depolarization; I45.10 Unspecified right bundle-branch block

== ENCOUNTER 2017-09-28 09:12 | Inpatient (IN) | payer MEDICARE, MEDICAID ==
[2017-09-28] VITALS (17 sets, daily range): BP systolic 97–198; BP diastolic 51–106; BMI 18.3
[~2017-09-28] VITALS: Ht 185.4 cm; Wt 75.1 kg
--- NOTE | ~2017-09-28 | CN ---
PATIENT NAME:RAVEN QUIGLEY MEDICAL RECORD: [id number] : 34 LOCATION:MONSERRAT.2305 ADMIT DATE: 09/28/17 ACCOUNT: [id number] CONSULTING PHYSICIAN: SMILEY CASTELLANO MD REFERRING PHYSICIAN: MARIANO LILLY MD DATE OF CONSULTATION: 09/28/2017 CONSULT REQUESTING PHYSICIAN: Mariano Lilly MD REASON FOR CONSULTATION: Vent management, acute respiratory failure. HISTORY OF PRESENT ILLNESS: Mr. Quigley is an 86-year-old gentleman, very well known to me. He has severe COPD, home oxygen dependent, severe gastroesophageal reflux disease. He also has a common variable immunodeficiency syndrome. The patient was found at home in very acute respiratory distress, brought into the ER. The patient was almost noncommunicative and he was saturating in the mid 70s. The patient was electively intubated. Now, the patient is orally intubated and sedated. The history was taken by reviewing the ER doctor and to the nursing staff. REVIEW OF SYSTEMS: The detail not obtainable. PAST MEDICAL HISTORY: 1. Severe COPD. 2. Chronic hypoxic respiratory failure. 3. Gastroesophageal reflux disease with recurrent aspiration pneumonia. 4. Severe pulmonary hypertension. 5. Recurrent pneumonia. 6. Coronary artery disease. 7. Peripheral vascular disease. 8. History of thrombocytosis for which he follows with Dr. Norton. He also has variable immunoglobulin deficiency syndrome and follows with Dr. Norton. 9. History of pancreatitis. PAST SURGICAL HISTORY: 1. Cholecystectomy. 2. Bilateral carotid endarterectomy. 3. Amputation of third, fourth and fifth finger. ALLERGIES: HE IS ALLERGIC TO LIDOCAINE, PROCAINE AND NARCAN. PRESENT MEDICATIONS: On [employer] is reviewed. PERSONAL AND SOCIAL HISTORY: The patient is an ex-smoker. He is a nondrinker. FAMILY HISTORY: Noncontributory. PHYSICAL EXAMINATION: GENERAL: Now, the patient is orally intubated and sedated. VITAL SIGNS: The blood pressure is 97/56, pulse is 73, respirations 15, temperature is 100.2 and SPO2 is 96% on assist control mechanical ventilation. HEENT: Conjunctivae are pink. Sclerae are not icteric. NECK: Supple, no JVD. CHEST: The chest excursion is minimal and both have bilateral crackles and wheezing. CONSULT REPORT [id number] RAVEN QUIGLEY HEART: Rhythm regular, normal sound, no murmur. ABDOMEN: Soft, bowel sounds present. No hepatosplenomegaly. RECTAL: Deferred. EXTREMITIES: No cyanosis, no clubbing, no pedal edema. SKIN: Warm, normal turgor. CENTRAL NERVOUS SYSTEM: The patient is orally intubated and sedated, unresponsive. LABORATORY DATA: CBC: WBC 7.7, hemoglobin 11.4, hematocrit 32.7, the platelet count 182. Chemistry: Sodium is 128, potassium is 4.8, BUN is 15, creatinine is 1.2. ABG: The pH is 7.42, pCO2 of 28.9, the pO2 is 76. The bicarbonate is 21. The repeat bicarbonate 17.1. The lactic acid level was 5.85. CHEST RADIOGRAPH: There are bilateral infiltrate. IMPRESSION: 1. Tiwwu-sa-ycmrdaq hypoxic respiratory failure. 2. Multilobar pneumonia, most likely aspiration with the patient's history of severe gastroesophageal reflux disease. 3. Sepsis. 4. Lactic acidosis. 5. Chronic obstructive pulmonary disease, acute exacerbation. 6. History of gastroesophageal reflux disease. 7. History of variable immunoglobulin deficiency. 8. History of pulmonary hypertension. RECOMMENDATION: 1. Continue mechanical ventilation, adjust the setting. 2. Start methylprednisolone IV. 3. Albuterol-ipratropium nebulizer. 4. Continue Zosyn and Levaquin. Check the sputum culture. 5. DVT and GI bleed prophylaxis. 6. Follow series of labs and chest radiographs. 7. Follow up on the blood cultures. 8. IV fluid. Dr. Lilly, thank you for allowing me in the care of Mr. Quigley. The critical care time is 50 minutes. TRANSINT:[id number] Voice Confirmation ID: [id number] DOCUMENT ID: [id number] SMILEY CASTELLANO MD at 1110 CC: [id number] DICTATION DATE: 09/28/17 1601 COATER: 09/28/17 1625 DIS IN 10/09/17 [facility] [address] [place] [id number]
[2017-09-28 09:44] LABS: APPEARANCE CLEAR (CLEAR); BACTERIA FEW /hpf (NONE SEEN); BILIRUBIN NEGATIVE (NEGATIVE); COLOR YELLOW (YELLOW); EPITHELIAL CELLS 0-5 /hpf (0-5); GLUCOSE NEGATIVE (NEGATIVE); KETONE SMALL mg/dL (NEGATIVE); NITRITE NEGATIVE (NEGATIVE); PROTEIN 1+ mg/dL (NEGATIVE); RED CELLS - URINE 0-5 /hpf (0-5); UROBILINOGEN NORMAL (NORMAL); WHITE CELLS - URINE 0-5 /hpf (0-5)
[2017-09-28 10:11] LABS: ALBUMIN 3.7 g/dL (3.4-5.0); ANION GAP 15.5 mmol/L (8-16); BILIRUBIN - TOTAL 1.07 mg/dL (0.2-1.3); CALCIUM 8.9 mg/dL (8.5-10.1); CARBON DIOXIDE 26.3 mmol/L (21.0-32.0); CREATININE - SERUM 1.2 mg/dL (0.6-1.3); POTASSIUM - SERUM 4.8 mmol/L (3.5-5.1); PROTEIN - SERUM 7.3 g/dL (6.4-8.2)
[2017-09-28 10:14] LABS: BASOPHILS 0.4 % (0-2); EOSINOPHILS 0.1 % (0-7); HEMATOCRIT 32.7 % (42.0-54.0); HEMOGLOBIN 11.4 g/dL (13.5-17.5); IMMATURE GRANULOCYTES 0.3 % (0-5); LYMPHOCYTES 8.8 % (15-50); MCH 30.8 pg (26.0-34.0); MCHC 34.9 g/dL (31.0-37.0); MCV 88.4 fL (80.0-100.0); MEAN PLATELET VOLUME 13.3 fL (7.4-10.4); MONOCYTES 8.5 % (2-11); NEUTROPHILS 81.9 % (40-80); PLATELET COUNT 82 10x3/uL (130-400); RDW 12.7 % (11.5-14.5); WBC 7.7 10x3/uL (4.8-10.8)
[2017-09-28 10:43] LABS: PLATELET ESTIMATE DECREASED
[2017-09-29] VITALS (25 sets, daily range): BP systolic 95–164; BP diastolic 53–107
[2017-09-29 04:04] LABS: BASOPHILS 0 % (0-2); EOSINOPHILS 0 % (0-7); HEMATOCRIT 29.4 % (42.0-54.0); IMMATURE GRANULOCYTES 0.3 % (0-5); LYMPHOCYTES 2.9 % (15-50); MCH 30.2 pg (26.0-34.0); MCV 88.8 fL (80.0-100.0); MEAN PLATELET VOLUME 9.5 fL (7.4-10.4); MONOCYTES 2.5 % (2-11); NEUTROPHILS 94.3 % (40-80); PLATELET COUNT 91 10x3/uL (130-400); RBC 3.31 10x6/uL (4.20-6.10); RDW 12.9 % (11.5-14.5)
[2017-09-29 04:05] LABS: WBC 10.1 10x3/uL (4.8-10.8)
[2017-09-29 04:32] LABS: BILIRUBIN - TOTAL 1.19 mg/dL (0.2-1.3); CALCIUM 7.7 mg/dL (8.5-10.1); CREATININE - SERUM 1.1 mg/dL (0.6-1.3); PROTEIN - SERUM 5.5 g/dL (6.4-8.2)
[2017-09-29 04:38] LABS: PLATELET ESTIMATE DECREASED; PLATELET MORPHOLOGY NORMAL PLT MORPH
[2017-09-29 04:40] LABS: ALBUMIN 2.5 g/dL (3.4-5.0); ANION GAP 11.8 mmol/L (8-16); POTASSIUM - SERUM 3.8 mmol/L (3.5-5.1)
[2017-09-29 13:50] LABS: CREATINE KINASE 142 UL (21-232)
[2017-09-29 13:51] LABS: TROPONIN-I 0.338 ng/mL (0.000-0.060)
[2017-09-29 18:07] LABS: CKMB 1.2 U/L (0.0-3.6); CREATINE KINASE 133 UL (21-232); TROPONIN-I 0.262 ng/mL (0.000-0.060)
[2017-09-30] VITALS (27 sets, daily range): BP systolic 100–146; BP diastolic 55–112; BMI 19.3
[2017-09-30 01:28] LABS: CREATINE KINASE 89 UL (21-232); TROPONIN-I 0.195 ng/mL (0.000-0.060)
[2017-09-30 04:03] LABS: BASOPHILS 0 % (0-2); EOSINOPHILS 0 % (0-7); HEMOGLOBIN 9.6 g/dL (13.5-17.5); IMMATURE GRANULOCYTES 0.1 % (0-5); LYMPHOCYTES 3.2 % (15-50); MCH 30.2 pg (26.0-34.0); MCHC 34.3 g/dL (31.0-37.0); MCV 88.1 fL (80.0-100.0); MEAN PLATELET VOLUME 10.7 fL (7.4-10.4); MONOCYTES 3.7 % (2-11); PLATELET COUNT 99 10x3/uL (130-400); RBC 3.18 10x6/uL (4.20-6.10); RDW 13.2 % (11.5-14.5); WBC 8.7 10x3/uL (4.8-10.8)
[2017-09-30 05:01] LABS: ALBUMIN 2.4 g/dL (3.4-5.0); ALKALINE PHOSPHATASE 71 U/L (46-116); BILIRUBIN - TOTAL 0.86 mg/dL (0.2-1.3); CALC OSMOLALITY 268 mosm/kg (275-300); CALCIUM 7.8 mg/dL (8.5-10.1); CARBON DIOXIDE 21.5 mmol/L (21.0-32.0); CHLORIDE - SERUM 101 mmol/L (98-107); CREATININE - SERUM 0.9 mg/dL (0.6-1.3); GLUCOSE 140 mg/dL (74-106); POTASSIUM - SERUM 3.5 mmol/L (3.5-5.1); PROTEIN - SERUM 5.2 g/dL (6.4-8.2); SODIUM 132 mmol/L (136-145); UREA NITROGEN 19 mg/dL (7-18); eGFR NON AFRICAN AMERICAN 85 mL/min (90-120)
[2017-09-30 05:10] LABS: ALT (SGPT) 1057 U/L (10-68)
[2017-09-30 14:02] LABS: % SATURATION 7 % (15-55); IRON 17 ug/dl (35-150); TOTAL IRON BIND CAPACITY 213 ug/dl (260-445); UNSAT IRON BIND CAPACITY 196 ug/dl (150-375)
[2017-09-30 14:16] LABS: FERRITIN 380 ng/mL (3-244); LDH 278 U/L (85-227)
[2017-10-01] VITALS (26 sets, daily range): BP systolic 117–167; BP diastolic 54–97
[2017-10-01 04:55] LABS: BASOPHILS 0 % (0-2); EOSINOPHILS 0 % (0-7); HEMATOCRIT 28.9 % (42.0-54.0); IMMATURE GRANULOCYTES 0.3 % (0-5); LYMPHOCYTES 3.5 % (15-50); MCH 30.5 pg (26.0-34.0); MCHC 34.6 g/dL (31.0-37.0); MCV 88.1 fL (80.0-100.0); MEAN PLATELET VOLUME 11.2 fL (7.4-10.4); MONOCYTES 4.3 % (2-11); NEUTROPHILS 91.9 % (40-80); PLATELET COUNT 93 10x3/uL (130-400); RBC 3.28 10x6/uL (4.20-6.10); RDW 13.3 % (11.5-14.5); WBC 7.7 10x3/uL (4.8-10.8)
[2017-10-01 05:33] LABS: APTT 39.1 SECONDS (22.8-39.4); INR 1.57 (0.85-1.17); PROTIME 18.3 SECONDS (11.6-15.0)
[2017-10-01 05:34] LABS: ALBUMIN 2.2 g/dL (3.4-5.0); ALKALINE PHOSPHATASE 71 U/L (46-116); ALT (SGPT) 951 U/L (10-68); AMYLASE - SERUM 27 U/L (25-115); BILIRUBIN - TOTAL 0.67 mg/dL (0.2-1.3); CALC OSMOLALITY 274 mosm/kg (275-300); CALCIUM 7.3 mg/dL (8.5-10.1); CARBON DIOXIDE 22.2 mmol/L (21.0-32.0); CHLORIDE - SERUM 104 mmol/L (98-107); CREATININE - SERUM 0.7 mg/dL (0.6-1.3); GLUCOSE 166 mg/dL (74-106); LDH 253 U/L (85-227); LIPASE 54 U/L (73-393); POTASSIUM - SERUM 3.7 mmol/L (3.5-5.1); PROTEIN - SERUM 5.1 g/dL (6.4-8.2); SODIUM 134 mmol/L (136-145); UREA NITROGEN 22 mg/dL (7-18); eGFR NON AFRICAN AMERICAN > 90 mL/min (90-120)
[2017-10-01 05:47] LABS: D-DIMER-QUANTITATIVE 7.24 ug/mLFEU (0.20-0.54)
[2017-10-01 07:27] LABS: FOLATE (FOLIC ACID) - SERUM 19.7 ng/mL (>3.0)
[2017-10-01 15:42] LABS: NEUT - BF 11 %
[2017-10-02] VITALS (26 sets, daily range): BP systolic 109–168; BP diastolic 56–90
[2017-10-02 05:11] LABS: BASOPHILS 0 % (0-2); EOSINOPHILS 0 % (0-7); HEMATOCRIT 31.5 % (42.0-54.0); HEMOGLOBIN 10.8 g/dL (13.5-17.5); IMMATURE GRANULOCYTES 0.2 % (0-5); LYMPHOCYTES 2.5 % (15-50); MCH 30.6 pg (26.0-34.0); MCHC 34.3 g/dL (31.0-37.0); MCV 89.2 fL (80.0-100.0); MEAN PLATELET VOLUME 11.1 fL (7.4-10.4); MONOCYTES 5.2 % (2-11); NEUTROPHILS 92.1 % (40-80); RBC 3.53 10x6/uL (4.20-6.10); RDW 13.8 % (11.5-14.5)
[2017-10-02 05:20] LABS: PLATELET COUNT 118 10x3/uL (130-400); WBC 9.8 10x3/uL (4.8-10.8)
[2017-10-02 05:24] LABS: ALBUMIN 2.1 g/dL (3.4-5.0); ALKALINE PHOSPHATASE 69 U/L (46-116); ALT (SGPT) 980 U/L (10-68); BILIRUBIN - TOTAL 0.66 mg/dL (0.2-1.3); CALCIUM 7.4 mg/dL (8.5-10.1); CARBON DIOXIDE 22.5 mmol/L (21.0-32.0); CHLORIDE - SERUM 107 mmol/L (98-107); PROTEIN - SERUM 5.1 g/dL (6.4-8.2); SODIUM 137 mmol/L (136-145); UREA NITROGEN 24 mg/dL (7-18); eGFR NON AFRICAN AMERICAN 85 mL/min (90-120)
[2017-10-02 05:28] LABS: CALC OSMOLALITY 284 mosm/kg (275-300); CREATININE - SERUM 0.9 mg/dL (0.6-1.3); GLUCOSE 223 mg/dL (74-106)
[2017-10-02 13:10] LABS: FUNGUS STAIN Final report (())
[2017-10-02 18:07] LABS: AFB SPECIMEN PROCESSING Concentration (())
[2017-10-03] VITALS (25 sets, daily range): BP systolic 94–167; BP diastolic 51–77
[2017-10-03 05:18] LABS: BASOPHILS 0 % (0-2); EOSINOPHILS 0 % (0-7); HEMATOCRIT 31.4 % (42.0-54.0); HEMOGLOBIN 10.6 g/dL (13.5-17.5); IMMATURE GRANULOCYTES 0.6 % (0-5); LYMPHOCYTES 3.3 % (15-50); MCH 30.4 pg (26.0-34.0); MCHC 33.8 g/dL (31.0-37.0); MEAN PLATELET VOLUME 11.1 fL (7.4-10.4); NEUTROPHILS 87.1 % (40-80); PLATELET COUNT 106 10x3/uL (130-400); RBC 3.49 10x6/uL (4.20-6.10); RDW 13.9 % (11.5-14.5); WBC 10.3 10x3/uL (4.8-10.8)
[2017-10-03 05:27] LABS: ALBUMIN 1.9 g/dL (3.4-5.0); ALKALINE PHOSPHATASE 66 U/L (46-116); ALT (SGPT) 930 U/L (10-68); BILIRUBIN - TOTAL 0.49 mg/dL (0.2-1.3); CALC OSMOLALITY 283 mosm/kg (275-300); CALCIUM 7.4 mg/dL (8.5-10.1); CARBON DIOXIDE 23.3 mmol/L (21.0-32.0); CHLORIDE - SERUM 107 mmol/L (98-107); CREATININE - SERUM 0.8 mg/dL (0.6-1.3); GLUCOSE 191 mg/dL (74-106); POTASSIUM - SERUM 4.3 mmol/L (3.5-5.1); PROTEIN - SERUM 4.6 g/dL (6.4-8.2); SODIUM 137 mmol/L (136-145); UREA NITROGEN 27 mg/dL (7-18); eGFR NON AFRICAN AMERICAN > 90 mL/min (90-120)
[2017-10-03 14:47] LABS: CKMB 0.4 U/L (0.0-3.6); CREATINE KINASE 22 UL (21-232); TROPONIN-I 0.043 ng/mL (0.000-0.060)
[2017-10-03 19:23] LABS: CKMB 0.2 U/L (0.0-3.6); CREATINE KINASE 19 UL (21-232); TROPONIN-I 0.042 ng/mL (0.000-0.060)
[2017-10-04] VITALS (23 sets, daily range): BP systolic 108–166; BP diastolic 43–88
[2017-10-04 05:22] LABS: BASOPHILS 0.1 % (0-2); EOSINOPHILS 0 % (0-7); HEMATOCRIT 31.4 % (42.0-54.0); HEMOGLOBIN 10.5 g/dL (13.5-17.5); IMMATURE GRANULOCYTES 0.9 % (0-5); MCH 30.2 pg (26.0-34.0); MCHC 33.4 g/dL (31.0-37.0); MCV 90.2 fL (80.0-100.0); MEAN PLATELET VOLUME 11.4 fL (7.4-10.4); PLATELET COUNT 102 10x3/uL (130-400); RBC 3.48 10x6/uL (4.20-6.10); WBC 9.6 10x3/uL (4.8-10.8)
[2017-10-04 05:47] LABS: ALBUMIN 2.1 g/dL (3.4-5.0); ALKALINE PHOSPHATASE 69 U/L (46-116); ALT (SGPT) 699 U/L (10-68); BILIRUBIN - TOTAL 0.55 mg/dL (0.2-1.3); CALC OSMOLALITY 278 mosm/kg (275-300); CALCIUM 7.6 mg/dL (8.5-10.1); CARBON DIOXIDE 24.7 mmol/L (21.0-32.0); CHLORIDE - SERUM 103 mmol/L (98-107); CKMB 0.2 U/L (0.0-3.6); CREATINE KINASE 16 UL (21-232); CREATININE - SERUM 0.9 mg/dL (0.6-1.3); GLUCOSE 194 mg/dL (74-106); POTASSIUM - SERUM 4.3 mmol/L (3.5-5.1); PRO BNP 2836 pg/mL (0-450); PROTEIN - SERUM 4.7 g/dL (6.4-8.2); SODIUM 134 mmol/L (136-145); TROPONIN-I 0.018 ng/mL (0.000-0.060); UREA NITROGEN 30 mg/dL (7-18); eGFR NON AFRICAN AMERICAN 85 mL/min (90-120)
[2017-10-04 15:21] LABS: RMSF IGM 0.42 index (0.00-0.89)
[2017-10-05] VITALS (16 sets, daily range): BP systolic 79–163; BP diastolic 47–102
[2017-10-05 05:31] LABS: BASOPHILS 0.1 % (0-2); EOSINOPHILS 0.2 % (0-7); HEMATOCRIT 30.7 % (42.0-54.0); HEMOGLOBIN 10.3 g/dL (13.5-17.5); IMMATURE GRANULOCYTES 0.6 % (0-5); LYMPHOCYTES 14.4 % (15-50); MCHC 33.6 g/dL (31.0-37.0); MCV 89.5 fL (80.0-100.0); MEAN PLATELET VOLUME 10.4 fL (7.4-10.4); MONOCYTES 9.1 % (2-11); NEUTROPHILS 75.6 % (40-80); RBC 3.43 10x6/uL (4.20-6.10); RDW 13.6 % (11.5-14.5)
[2017-10-05 05:52] LABS: PLATELET COUNT 123 10x3/uL (130-400); WBC 12.6 10x3/uL (4.8-10.8)
[2017-10-05 05:53] LABS: ALBUMIN 2.5 g/dL (3.4-5.0); ALKALINE PHOSPHATASE 44 U/L (46-116); BILIRUBIN - TOTAL 0.89 mg/dL (0.2-1.3); CALCIUM 7.9 mg/dL (8.5-10.1); CHLORIDE - SERUM 102 mmol/L (98-107); CREATININE - SERUM 0.8 mg/dL (0.6-1.3); POTASSIUM - SERUM 4.1 mmol/L (3.5-5.1); PROTEIN - SERUM 5.1 g/dL (6.4-8.2); SODIUM 137 mmol/L (136-145); UREA NITROGEN 31 mg/dL (7-18); eGFR NON AFRICAN AMERICAN > 90 mL/min (90-120)
[2017-10-05 06:06] LABS: ALT (SGPT) 467 U/L (10-68); CALC OSMOLALITY 279 mosm/kg (275-300); CARBON DIOXIDE 31.3 mmol/L (21.0-32.0); GLUCOSE 84 mg/dL (74-106)
[2017-10-06 04:48] LABS: BASOPHILS 0 % (0-2); EOSINOPHILS 3.2 % (0-7); HEMOGLOBIN 9.4 g/dL (13.5-17.5); IMMATURE GRANULOCYTES 0.5 % (0-5); LYMPHOCYTES 8.8 % (15-50); MCH 30.2 pg (26.0-34.0); MCHC 33.6 g/dL (31.0-37.0); MEAN PLATELET VOLUME 9.9 fL (7.4-10.4); MONOCYTES 14.1 % (2-11); NEUTROPHILS 73.4 % (40-80); PLATELET COUNT 107 10x3/uL (130-400); RBC 3.11 10x6/uL (4.20-6.10); RDW 13.6 % (11.5-14.5); WBC 10.2 10x3/uL (4.8-10.8)
[2017-10-06 05:04] LABS: ALBUMIN 2.5 g/dL (3.4-5.0); ALKALINE PHOSPHATASE 38 U/L (46-116); BILIRUBIN - TOTAL 1.03 mg/dL (0.2-1.3); CALC OSMOLALITY 276 mosm/kg (275-300); CALCIUM 8.1 mg/dL (8.5-10.1); CARBON DIOXIDE 32.4 mmol/L (21.0-32.0); CHLORIDE - SERUM 101 mmol/L (98-107); GLUCOSE 96 mg/dL (74-106); PROTEIN - SERUM 4.8 g/dL (6.4-8.2); SODIUM 136 mmol/L (136-145); UREA NITROGEN 27 mg/dL (7-18); eGFR NON AFRICAN AMERICAN 76 mL/min (90-120)
[2017-10-06 05:21] LABS: ALT (SGPT) 299 U/L (10-68); POTASSIUM - SERUM 3.4 mmol/L (3.5-5.1)
[2017-10-06 06:14] VITALS: BP 150/74
[2017-10-06 06:33] VITALS: BP 138/71
[2017-10-06 08:21] VITALS: BP 159/70
[2017-10-06 11:36] VITALS: BP 110/57
[2017-10-06 16:14] VITALS: BP 149/77
[2017-10-06 20:00] VITALS: BP 144/56
[2017-10-07] VITALS: BP 132/63
[2017-10-07 04:00] VITALS: BP 130/60
[2017-10-07 04:53] LABS: BASOPHILS 0 % (0-2); EOSINOPHILS 3.2 % (0-7); HEMATOCRIT 25.7 % (42.0-54.0); HEMOGLOBIN 8.5 g/dL (13.5-17.5); IMMATURE GRANULOCYTES 0.3 % (0-5); LYMPHOCYTES 6.9 % (15-50); MCH 30.1 pg (26.0-34.0); MCHC 33.1 g/dL (31.0-37.0); MCV 91.1 fL (80.0-100.0); MEAN PLATELET VOLUME 11.1 fL (7.4-10.4); MONOCYTES 9.5 % (2-11); NEUTROPHILS 80.1 % (40-80); PLATELET COUNT 89 10x3/uL (130-400); RBC 2.82 10x6/uL (4.20-6.10); RDW 13.6 % (11.5-14.5); WBC 9.8 10x3/uL (4.8-10.8)
[2017-10-07 05:34] LABS: CALC OSMOLALITY 278 mosm/kg (275-300); CALCIUM 7.9 mg/dL (8.5-10.1); CARBON DIOXIDE 28.8 mmol/L (21.0-32.0); CHLORIDE - SERUM 102 mmol/L (98-107); CREATININE - SERUM 0.7 mg/dL (0.6-1.3); GLUCOSE 141 mg/dL (74-106); MAGNESIUM - SERUM 2.1 mg/dL (1.8-2.4); PHOSPHOROUS 2.7 mg/dL (2.5-4.9); POTASSIUM - SERUM 3.8 mmol/L (3.5-5.1); SODIUM 137 mmol/L (136-145); UREA NITROGEN 22 mg/dL (7-18); eGFR NON AFRICAN AMERICAN > 90 mL/min (90-120)
[2017-10-07 08:00] VITALS: BP 172/89
[2017-10-07 08:44] VITALS: BP 131/65
[2017-10-07 12:36] VITALS: BP 169/97
[2017-10-07 17:45] VITALS: BP 174/84
[2017-10-08] VITALS (7 sets, daily range): BP systolic 93–192; BP diastolic 55–96
[2017-10-08 09:33] LABS: BASOPHILS 0.1 % (0-2); EOSINOPHILS 1.6 % (0-7); HEMATOCRIT 26.6 % (42.0-54.0); HEMOGLOBIN 8.7 g/dL (13.5-17.5); IMMATURE GRANULOCYTES 0.4 % (0-5); LYMPHOCYTES 5.3 % (15-50); MCH 30.2 pg (26.0-34.0); MCHC 32.7 g/dL (31.0-37.0); MCV 92.4 fL (80.0-100.0); MEAN PLATELET VOLUME 11.6 fL (7.4-10.4); MONOCYTES 6.1 % (2-11); NEUTROPHILS 86.5 % (40-80); PLATELET COUNT 88 10x3/uL (130-400); RBC 2.88 10x6/uL (4.20-6.10); RDW 13.7 % (11.5-14.5)
[2017-10-08 09:35] LABS: WBC 15.9 10x3/uL (4.8-10.8)
[2017-10-08 10:19] LABS: F. TULARENSIS - IGG Negative (()); F. TULARENSIS - IGM Negative (())
[2017-10-08 15:19] LABS: FUNGUS CULTURE RESULT 1 Candida albicans (())
[2017-10-08 15:47] LABS: ALBUMIN 2.8 g/dL (3.4-5.0); ALKALINE PHOSPHATASE 49 U/L (46-116); ALT (SGPT) 135 U/L (10-68); BILIRUBIN - TOTAL 0.63 mg/dL (0.2-1.3); CALC OSMOLALITY 276 mosm/kg (275-300); CALCIUM 7.7 mg/dL (8.5-10.1); CARBON DIOXIDE 28.4 mmol/L (21.0-32.0); CHLORIDE - SERUM 102 mmol/L (98-107); CREATININE - SERUM 0.7 mg/dL (0.6-1.3); GLUCOSE 145 mg/dL (74-106); POTASSIUM - SERUM 4.3 mmol/L (3.5-5.1); PROTEIN - SERUM 5.1 g/dL (6.4-8.2); SODIUM 135 mmol/L (136-145); UREA NITROGEN 25 mg/dL (7-18); eGFR NON AFRICAN AMERICAN > 90 mL/min (90-120)
[2017-10-09] VITALS (17 sets, daily range): BP systolic 98–155; BP diastolic 58–97; Ht 185.4 cm; Wt 75.1 kg
[2017-10-09 04:00] LABS: BASOPHILS 0 % (0-2); EOSINOPHILS 0.6 % (0-7); HEMATOCRIT 23.7 % (42.0-54.0); HEMOGLOBIN 7.8 g/dL (13.5-17.5); IMMATURE GRANULOCYTES 0.4 % (0-5); LYMPHOCYTES 4.6 % (15-50); MCH 30.2 pg (26.0-34.0); MCHC 32.9 g/dL (31.0-37.0); MCV 91.9 fL (80.0-100.0); MEAN PLATELET VOLUME 10.6 fL (7.4-10.4); MONOCYTES 8.8 % (2-11); NEUTROPHILS 85.6 % (40-80); PLATELET COUNT 86 10x3/uL (130-400); RBC 2.58 10x6/uL (4.20-6.10); RDW 13.7 % (11.5-14.5); WBC 14.2 10x3/uL (4.8-10.8)
[2017-10-09 04:24] LABS: ALBUMIN 2.7 g/dL (3.4-5.0); ALKALINE PHOSPHATASE 41 U/L (46-116); ALT (SGPT) 110 U/L (10-68); CALC OSMOLALITY 276 mosm/kg (275-300); CALCIUM 7.6 mg/dL (8.5-10.1); CARBON DIOXIDE 31.1 mmol/L (21.0-32.0); CHLORIDE - SERUM 102 mmol/L (98-107); CREATININE - SERUM 0.7 mg/dL (0.6-1.3); GLUCOSE 122 mg/dL (74-106); POTASSIUM - SERUM 3.9 mmol/L (3.5-5.1); PROTEIN - SERUM 5.3 g/dL (6.4-8.2); SODIUM 136 mmol/L (136-145); UREA NITROGEN 25 mg/dL (7-18); eGFR NON AFRICAN AMERICAN > 90 mL/min (90-120)
[2017-10-10 15:24] LABS: EHRLICHIA CHAFF IGG Negative (Neg:<1:64); EHRLICHIA CHAFF IGM Negative (Neg:<1:20); HGE IGG TITER Negative (Neg:<1:64); HGE IGM TITER Negative (Neg:<1:20)
[2017-10-11 10:21] LABS: VIRAL - RESULT No virus isolated. (())
[2017-10-29 06:14] LABS: FUNGUS MYCOLOGY CULTURE Final report (())
[2017-11-22 11:20] LABS: ACID FAST CULTURE Negative (()); ACID FAST SMEAR Negative (())
== END 2017-10-09 19:22 | disposition hospice, inpatient (51) | DRG 870 ==
LOC: D.ER 09:12 → D.EDHOLD 10:53 → D.M2 10:53 → D.ICU 10:53 → D.M2 10-05 18:22 → D.ICU 10-08 20:38
PROVIDERS: Emergency Medicine; Family Medicine; Internal Medicine Nephrology; Internal Medicine Pulmonary Disease
PROC: 05H633Z Insertion of Infusion Device into Left Subclavian Vein, Percutaneous Approach (ICD-10-PCS; principal; 2017-09-28)
PROC: 5A1955Z Respiratory Ventilation, Greater than 96 Consecutive Hours (ICD-10-PCS; 2017-09-28)
PROC: 0BH17EZ Insertion of Endotracheal Airway into Trachea, Via Natural or Artificial Opening (ICD-10-PCS; 2017-09-28)
PROC: 0BC68ZZ Extirpation of Matter from Right Lower Lobe Bronchus, Via Natural or Artificial Opening Endoscopic (ICD-10-PCS; 2017-10-01)
PROC: 0BC58ZZ Extirpation of Matter from Right Middle Lobe Bronchus, Via Natural or Artificial Opening Endoscopic (ICD-10-PCS; 2017-10-01)
DX: A41.9 Sepsis, unspecified organism (principal); J69.0 Pneumonitis due to inhalation of food and vomit; J96.21 Acute and chronic respiratory failure with hypoxia; I50.33 Acute on chronic diastolic (congestive) heart failure; K72.00 Acute and subacute hepatic failure without coma; J44.1 Chronic obstructive pulmonary disease with (acute) exacerbation; E87.2 Acidosis; E87.1 Hypo-osmolality and hyponatremia; I11.0 Hypertensive heart disease with heart failure; I27.20 Pulmonary hypertension, unspecified; I73.9 Peripheral vascular disease, unspecified; D64.9 Anemia, unspecified; R53.81 Other malaise; D69.6 Thrombocytopenia, unspecified; E78.5 Hyperlipidemia, unspecified; I25.10 Atherosclerotic heart disease of native coronary artery without angina pectoris; Z99.81 Dependence on supplemental oxygen; K21.9 Gastro-esophageal reflux disease without esophagitis; Z66 Do not resuscitate

== ENCOUNTER 2017-10-09 19:55 | Inpatient (IN) | payer OTHER ==
[~2017-10-09] VITALS: Ht 185.4 cm; Wt 95.5 kg
[2017-10-09 19:58] VITALS: BP 116/69; BMI 27.7
[2017-10-10] VITALS: BP 95/68
[2017-10-10 09:10] VITALS: BP 142/94
[2017-10-10 12:22] VITALS: BP 134/74
[2017-10-10 16:13] VITALS: BP 133/74
[2017-10-10 20:29] VITALS: BP 145/82
[2017-10-11 09:23] VITALS: BP 160/108
[2017-10-11 12:44] VITALS: BP 150/88
[2017-10-11 19:59] VITALS: BP 146/89
[2017-10-12 07:07] VITALS: BP 123/86
[2017-10-12 20:08] VITALS: BP 158/98
[2017-10-13 08:06] VITALS: BP 80/43
[2017-12-09 13:42] VITALS: Ht 185.4 cm; Wt 95.5 kg
== END 2017-10-13 12:00 | DRG 951 ==
LOC: D.ICU 19:55 → D.MS 19:55
DX: Z51.5 Encounter for palliative care (principal)